=== PATIENT | female | born 1980 | race Caucasian/White ===

== ENCOUNTER → 2016-03-24 | Outpatient (CLI) | payer MEDICAID ==
--- NOTE | 2016-03-24 12:30 | Diagnostic Imaging Report ---
PROCEDURE: MRI lumbar spine. TECHNIQUE: Multiplanar, multisequence MRI of the lumbar spine was performed without contrast. INDICATION: Chronic back pain. FINDINGS: There is a transitional lumbosacral junction. There is mildly prominent disc between S1 and S2 and the left lateral mass of the S1 level is lumbarized with morphology of a transverse process. The alignment of the posterior spinal line is satisfactory. The vertebral body heights are preserved. There is disc desiccation at L4/L5 level with mild disc height loss. There is diffuse low signal in the marrow. There is an 8 mm T1 and T2 hyperintense signal lesion in L2 vertebral body compatible with a hemangioma. The cauda equina and conus medullaris appear grossly unremarkable. T12/L1: There is minimal disc herniation without spinal canal stenosis or foraminal narrowing. L1/L2: No disc herniation. There is mild facet hypertrophy. No spinal canal or foraminal stenosis. L2/L3: No disc herniation. There is mild facet hypertrophy with minimal synovial cyst posterior to the right facet joint. No spinal canal or foraminal stenosis. L3/L4: No disc herniation. There is mild to moderate facet hypertrophy. No central canal, lateral recess or foraminal stenosis. L4/L5: There is no disc herniation. There is mild to moderate facet hypertrophy. No central canal or lateral recess stenosis. The foramina demonstrate mild narrowing bilaterally. L5/S1: There is a mild diffuse disc bulge and mild facet hypertrophy. There is no central canal stenosis. There is mild narrowing of the lateral recess on the left side without significant nerve compression. The right lateral recess is patent. The foramina demonstrate minimal narrowing bilaterally. IMPRESSION: 1. Diffuse replacement of normal expected fatty marrow suggestive of an infiltrative marrow disease, or reactive hematopoiesis. This could also be seen with hematologic malignancy. Correlate clinically. 2. Mild disc degenerative changes and herniation at L5/S1 and multilevel facet arthropathy in the lumbar spine. No high-grade spinal canal stenosis at any level. Dictated by: Dictated on workstation # [id number]
== END ==
LOC: RAD 10:17
PROVIDERS: ATTEND Nurse Practitioner Adult Health
DX: M54.5 Low back pain (principal)
CPT/HCPCS: 72148

== ENCOUNTER 2017-02-13 11:01 | Outpatient (CLI) | payer MEDICAID ==
[~2017-02-13] VITALS: Ht 162.6 cm; Wt 166.0 kg
[2017-02-13 11:09] VITALS: BP 144/71
[2017-02-13] MEDS ORDERED: METO100T12 PO (11:17)
[2017-02-13] MEDS ORDERED: SOTA160T PO (11:17)
[2017-02-13] MEDS ORDERED: VIT1TABL75 PO (11:17)
[2017-02-13] MEDS ORDERED: HYDR-700 PO (11:17)
[2017-02-13] MEDS ORDERED: ACET325T49 PO (11:17)
[2017-02-13] MEDS ORDERED: ENOX40DI13 SQ (11:17)
[2017-02-13] MEDS ORDERED: ESCI20TA45 PO (11:17)
[2017-02-13] MEDS ORDERED: VERA240C2 PO (11:17)
[2017-02-13] MEDS ORDERED: FERR-74 PO (11:17)
== END 2017-02-13 11:40 | disposition home or self-care (01) ==
LOC: PREOP 11:01
PROVIDERS: ATTEND Obstetrics & Gynecology
DX: Z01.818 Encounter for other preprocedural examination (principal); Z11.2 Encounter for screening for other bacterial diseases; O34.211 Maternal care for low transverse scar from previous cesarean delivery; Z88.1 Allergy status to other antibiotic agents
CPT/HCPCS: 87081

== ENCOUNTER → 2017-02-13 | Outpatient (CLI) | payer MEDICAID ==
[~2017-02-13] MED LIST: ACET325T49 PO; ENOX40DI13 SQ; ESCI20TA45 PO; FERR-74 PO; HYDR-700 PO; METO100T12 PO; SOTA160T PO; VERA240C2 PO; VIT1TABL75 PO
[2017-02-13 12:59] LABS: PROTEIN/CREATININE RATIO 0.45
== END ==
LOC: LABNPT 12:06
PROVIDERS: ATTEND Obstetrics & Gynecology
DX: O28.8 Other abnormal findings on antenatal screening of mother (principal)
CPT/HCPCS: 82570; 84156

== ENCOUNTER 2017-02-14 08:50 | Inpatient (IN) | payer MEDICAID ==
[~2017-02-14] VITALS: Ht 162.6 cm; Wt 166.0 kg
[2017-02-14 09:05] VITALS: BP 121/57
--- OUTSIDE RECORDS SUMMARY | 2017-02-14 09:17 | XMS REPORT ---
Author Author RAMSES ROCK Organization [facility] Address [address] [place] [address] Care Team Providers Care Training Representative Name Role Phone RAMSES ROCK Unavailable PROBLEMS Type Condition ICD9-CM Code [id number] Code Onset Dates Condition Status SNOMED Code Problem Edema, unspecified type R60.9 Active 911398416 Problem Hypercholesterolemia E78.0 Active 94997269 Problem Coronary artery disease, angina presence unspecified, unspecified vessel or lesion type, unspecified whether [place] or transplanted heart I25.10 Active 63005253 Problem Reactive depression F32.9 Active 49218536 Problem Hyperlipidemia, unspecified hyperlipidemia type E78.5 Active 24742296 Problem Mild intermittent asthma without complication J45.20 Active 065368281 Problem Gastroesophageal reflux disease, esophagitis presence not specified K21.9 Active 121576655 Problem Cluster headache, not intractable, unspecified chronicity pattern G44.009 Active 788716646 Problem Other constipation K59.09 Active 919721076 Problem Anxiety F41.9 Active 58178087 Problem Hypertension I10 Active 64029408 Problem Anemia D64.9 Active 350993727 Problem Environmental allergies Z91.09 Active 292448913 Problem Atrial fibrillation I48.91 Active 79607669 Problem Chronic back pain M54.9 Active 624515124 Problem Obesity E66.9 Active 568330168 Problem GERD (gastroesophageal reflux disease) K21.9 Active 788236565 ALLERGIES No Information SOCIAL HISTORY Never Assessed PLAN OF CARE VITAL SIGNS MEDICATIONS Unknown Medications RESULTS No Results PROCEDURES No Known procedures IMMUNIZATIONS No Known Immunizations MEDICAL (GENERAL) HISTORY Type Description Date Medical History Irregular heart beat Medical History Hypertension Medical History GERD Medical History diverticulitis Medical History Gynecological disorder POS and PCOS Medical History Epilepsy and recurrent seizures r/t vertigo Surgical History Genito-urinary tract surgery/endometriosis Surgical History X2 Hospitalization History surgeries Hospitalization History A Fib multiple times
--- OUTSIDE RECORDS SUMMARY | 2017-02-14 09:17 | XMS REPORT ---
Author RAMSES Reis [facility] eClinicalWorks Address Unknown Phone Unavailable Care Team Providers Care Dog Groomer Name Role Phone RAMSES ROCK CP Unavailable Allergies No Known Allergies Problems Problem Type Condition Code Onset Dates Condition Status Problem Chronic back pain M54.9 Active Problem Anemia D64.9 Active Problem Obesity E66.9 Active Problem Hypertension I10 Active Problem Anxiety F41.9 Active Problem Atrial fibrillation I48.91 Active Problem GERD (gastroesophageal reflux disease) K21.9 Active Problem Environmental allergies Z91.09 Active Problem CAD (coronary artery disease) I25.10 Active Medications Medication Code System Code Instructions Start Date End Date Status Dosage Hydrocodone-Acetaminophen [facility] [address]-17 10-250 mg orally 4 times per day April 27, 2012 1 tablet as needed Results No Known Results Summary Purpose eClinicalWorks Submission
--- OUTSIDE RECORDS SUMMARY | 2017-02-14 09:17 | XMS REPORT ---
Author Author RAMSES ROCK [facility] eClinicalWorks Address Unknown Phone Unavailable Care Team Providers Care Web Applications Architect Name Role Phone RAMSES ROCK CP Unavailable Allergies No Known Allergies Problems Problem Type Condition Code Onset Dates Condition Status Problem GERD (gastroesophageal reflux disease) K21.9 Active Problem Environmental allergies Z91.09 Active Problem Atrial fibrillation I48.91 Active Problem Anemia D64.9 Active Problem Chronic back pain M54.9 Active Problem Hypercholesterolemia E78.0 Active Problem Coronary artery disease, angina presence unspecified, unspecified vessel or lesion type, unspecified whether [place] or transplanted heart I25.10 Active Problem Gastroesophageal reflux disease, esophagitis presence not specified K21.9 Active Problem Obesity E66.9 Active Problem Hypertension I10 Active Problem Edema, unspecified type R60.9 Active Problem Anxiety F41.9 Active Medications Medication Code System Code Instructions Start Date End Date Status Dosage Alprazolam [facility] [address]-58 1 MG Orally Three times a day 1 tablet as needed Results No Known Results Summary Purpose eClinicalWorks Submission
--- OUTSIDE RECORDS SUMMARY | 2017-02-14 09:17 | XMS REPORT ---
Author Author RAMSES ROCK [facility] eClinicalWorks Address Unknown Phone Unavailable Care Team Providers Care Combiner Operator Name Role Phone RAMSES ROCK CP Unavailable Allergies No Known Allergies Problems Problem Type Condition Code Onset Dates Condition Status Problem Atrial fibrillation I48.91 Active Problem Hypertension I10 Active Problem Environmental allergies Z91.09 Active Problem Gastroesophageal reflux disease, esophagitis presence not specified K21.9 Active Problem Hypercholesterolemia E78.0 Active Problem Mild intermittent asthma without complication J45.20 Active Problem Anxiety F41.9 Active Problem Obesity E66.9 Active Problem Coronary artery disease, angina presence unspecified, unspecified vessel or lesion type, unspecified whether [place] or transplanted heart I25.10 Active Problem Edema, unspecified type R60.9 Active Assessment Anxiety F41.9 Active Problem Anemia D64.9 Active Problem Chronic back pain M54.9 Active Problem GERD (gastroesophageal reflux disease) K21.9 Active Medications Medication Code System Code Instructions Start Date End Date Status Dosage Hydrocodone-Acetaminophen [facility] [address]-90 10-325 MG Orally every 6 hrs Jan 07, 2016 Feb 04, 2016 1 tablet as needed Results No Known Results Summary Purpose eClinicalWorks Submission
--- OUTSIDE RECORDS SUMMARY | 2017-02-14 09:18 | XMS REPORT ---
Author Author RAMSES ROCK Organization [facility] Address [address] [place] [address] Care Team Providers Care Lithographic Press Operator Name Role Phone JAMES ROCKNETTE Unavailable PROBLEMS Type Condition ICD9-CM Code [id number] Code Onset Dates Condition Status SNOMED Code Problem Edema, unspecified type R60.9 Active 398943778 Problem Hypercholesterolemia E78.0 Active 33892329 Problem Coronary artery disease, angina presence unspecified, unspecified vessel or lesion type, unspecified whether [place] or transplanted heart I25.10 Active 63421307 Problem Reactive depression F32.9 Active 94207790 Problem Hyperlipidemia, unspecified hyperlipidemia type E78.5 Active 89383902 Problem Mild intermittent asthma without complication J45.20 Active 316649840 Problem Gastroesophageal reflux disease, esophagitis presence not specified K21.9 Active 123121705 Problem Cluster headache, not intractable, unspecified chronicity pattern G44.009 Active 072583486 Problem Other constipation K59.09 Active 268639185 Problem Anxiety F41.9 Active 88215662 Problem Hypertension I10 Active 10810068 Problem Anemia D64.9 Active 692456261 Problem Environmental allergies Z91.09 Active 750632554 Problem Atrial fibrillation I48.91 Active 56941013 Problem Chronic back pain M54.9 Active 695474432 Problem Obesity E66.9 Active 184088119 Problem GERD (gastroesophageal reflux disease) K21.9 Active 290958318 ALLERGIES Unknown Allergies SOCIAL HISTORY No smoking Hx information available PLAN OF CARE VITAL SIGNS MEDICATIONS Unknown Medications RESULTS No Results PROCEDURES No Known procedures IMMUNIZATIONS No Known Immunizations
--- OUTSIDE RECORDS SUMMARY | 2017-02-14 09:18 | XMS REPORT ---
Author Author RAMSES ROCK [facility] eClinicalWorks Address Unknown Phone Unavailable Care Team Providers Care Chicken Catcher Name Role Phone RAMSES ROCK CP Unavailable Allergies, Adverse Reactions, Alerts Substance Reaction Event Type Reglan Info Not Available Drug Allergy Prozac Info Not Available Drug Allergy Morphine Sulfate Info Not Available Drug Allergy Cipro chest pain Drug Allergy Amoxicillin Info Not Available Drug Allergy wheat Info Not Available Non Drug Allergy shellfish Info Not Available Non Drug Allergy milk Info Not Available Non Drug Allergy Ultram Info Not Available Drug Allergy corn Info Not Available Non Drug Allergy eggs Info Not Available Non Drug Allergy Problems Problem Type Condition Code Onset Dates Condition Status Assessment Hypertension I10 Active Problem Chronic back pain M54.9 Active Problem Anemia D64.9 Active Problem Obesity E66.9 Active Problem Hypertension I10 Active Problem Anxiety F41.9 Active Problem Atrial fibrillation I48.91 Active Problem GERD (gastroesophageal reflux disease) K21.9 Active Problem Environmental allergies Z91.09 Active Problem CAD (coronary artery disease) I25.10 Active Assessment Hypercholesteremia E78.0 Active Assessment Obesity E66.9 Active Assessment Environmental allergies Z91.09 Active Assessment Chronic back pain M54.9 Active Assessment GERD (gastroesophageal reflux disease) K21.9 Active Assessment Anxiety F41.9 Active Assessment Atrial fibrillation I48.91 Active Assessment Anemia D64.9 Active Assessment CAD (coronary artery disease) I25.10 Active Medications Medication Code System Code Instructions Start Date End Date Status Dosage Omeprazole [facility] [address]-98 40 MG April 26, 2013 2 Capsule by Oral route 1 time per day Flonase [facility] [address]-29 50 MCG/ACT Nasally 2 times a day Jan 18, 2015 1 spray in each nostril Xanax [facility] [address]-06 1 MG Orally 3 times a day Dec 25, 2014 1 tablet verapamil ND 0 240 mg April 26, 2013 take 1 tablet by Oral route 1 time per day at bedtime Coumadin [facility] [address]-64 6 MG Once a day take 1 tablet (7.5 mg ) by oral route once daily Metoprolol Tartrate [facility] [address]-65 100 MG Orally Twice a day April 26, 2013 take 1 tablet by oral route 2 times per day Singulair [facility] [address]-79 10 MG Orally Once a day 1 TABLET BY ORAL ROUTE 1 TIME PER DAY Combivent Respimat [facility] [address]-67 20-100 mcg/actuation Apr 07, 2014 inhale 1 puff by inhalation route 4 times per day ; may take additional puffs as needed not to exceed 6 puffs in 24hrs Loratadine [facility] 81220530060 10 TAKE 1 TABLET BY MOUTH EVERY DAY Zocor [facility] [address]-65 20 MG Once a day April 26, 2013 take 1 tablet (20 mg) by oral route once daily in the evening Sotalol HCl [facility] [address]-65 160 MG Orally Twice a day 1 tablet Trilipix [facility] [address]-18 135 MG Orally Once a day Nov 30, 2014 1 capsule Furosemide [facility] 90169366286 40 TAKE 1 TABLET BY MOUTH DAILY Hydrocodone-Acetaminophen [facility] [address]-48 10-250 mg 3 times a day April 27, 2012 1 tablet as needed Procedures Procedure Coding System Code Date Office Visit, Est Pt., Level 4 CPT-4 92772 Jan 27, 2015 PROTHROMBIN TIME CPT-4 57615 Jan 27, 2015 Vital Signs Date/Time: Jan 27, 2015 Temperature 97.6 F Weight 373 lbs Height 70 in BMI 53.51 Index Blood Pressure Diastolic 86 mmHg Blood Pressure Systolic 112 mmHg Cardiac Monitoring Heart Rate 72 bpm Results Name Result Date Reference Range Unit Abnormality Flag INR (IN HOUSE) ----Exp date 20150127 ----Lot # [id number] ----INR 3.2 20150127 1.10 - 3.30 ----PREVIOUS INR 4.0 20150127 ----CURRENT COUMADIN DOSE 6mg everyday 20150127 ----NEW COUMADIN DOSE 6mg everyday 20150127 Summary Purpose eClinicalWorks Submission
--- OUTSIDE RECORDS SUMMARY | 2017-02-14 09:18 | XMS REPORT ---
Author Author RAMSES ROCK Organization [facility] Address [address] [place] [address] Care Team Providers Care Pattern And Chain Maker Name Role Phone FRANCIS ROCKE Unavailable PROBLEMS Type Condition ICD9-CM Code TSR83-BK Code Onset Dates Condition Status SNOMED Code Problem Edema, unspecified type R60.9 Active 343017918 Problem Hypercholesterolemia E78.0 Active 16112402 Problem Coronary artery disease, angina presence unspecified, unspecified vessel or lesion type, unspecified whether [place] or transplanted heart I25.10 Active 15646011 Problem Reactive depression F32.9 Active 27476185 Problem Hyperlipidemia, unspecified hyperlipidemia type E78.5 Active 03185953 Problem Mild intermittent asthma without complication J45.20 Active 779200861 Problem Gastroesophageal reflux disease, esophagitis presence not specified K21.9 Active 562252214 Problem Cluster headache, not intractable, unspecified chronicity pattern G44.009 Active 243758254 Problem Other constipation K59.09 Active 326835002 Problem Anxiety F41.9 Active 41516700 Problem Hypertension I10 Active 73137164 Problem Anemia D64.9 Active 398978433 Problem Environmental allergies Z91.09 Active 155799643 Problem Atrial fibrillation I48.91 Active 44681903 Problem Chronic back pain M54.9 Active 227086658 Problem Obesity E66.9 Active 996629060 Problem GERD (gastroesophageal reflux disease) K21.9 Active 417422110 ALLERGIES No Information SOCIAL HISTORY Never Assessed PLAN OF CARE VITAL SIGNS MEDICATIONS Medication Instructions Dosage Frequency Start Date End Date Duration Status Hydrocodone-Acetaminophen 10-325 MG Orally every 6 hrs 1 tablet as needed 6h Mar, Active Xanax 1 MG Orally 3 times a day Rx to be filled on 02/25/16 1 tablet Dec Active RESULTS No Results PROCEDURES No Known procedures [...]
--- OUTSIDE RECORDS SUMMARY | 2017-02-14 09:18 | XMS REPORT ---
Author Author RAMSES ROCK Organization [facility] Address [address] [place] [address] Care Team Providers Care Claims Account Specialist Name Role Phone RAMSES ROCK Unavailable PROBLEMS Type Condition ICD9-CM Code [id number] Code Onset Dates Condition Status SNOMED Code Problem Edema, unspecified type R60.9 Active 598280452 Problem Hypercholesterolemia E78.0 Active 09836977 Problem Coronary artery disease, angina presence unspecified, unspecified vessel or lesion type, unspecified whether [place] or transplanted heart I25.10 Active 41731670 Problem Reactive depression F32.9 Active 08640236 Problem Hyperlipidemia, unspecified hyperlipidemia type E78.5 Active 18143096 Problem Mild intermittent asthma without complication J45.20 Active 190049816 Problem Gastroesophageal reflux disease, esophagitis presence not specified K21.9 Active 357152847 Problem Cluster headache, not intractable, unspecified chronicity pattern G44.009 Active 575845533 Problem Other constipation K59.09 Active 715044435 Problem Anxiety F41.9 Active 91201585 Problem Hypertension I10 Active 53779597 Problem Anemia D64.9 Active 778758212 Problem Environmental allergies Z91.09 Active 748380473 Problem Atrial fibrillation I48.91 Active 52573473 Problem Chronic back pain M54.9 Active 112701900 Problem Obesity E66.9 Active 765466043 Problem GERD (gastroesophageal reflux disease) K21.9 Active 056829393 ALLERGIES No Information SOCIAL HISTORY Never Assessed [...]
--- OUTSIDE RECORDS SUMMARY | 2017-02-14 09:18 | XMS REPORT ---
Author Author PRANAV RAMSES Organization [facility] Address [address] [place] [address] Care Team Providers Care Outpatient Physical Therapist Name Role Phone RAMSES ROCK Unavailable PROBLEMS Type Condition ICD9-CM Code BCK08-OC Code Onset Dates Condition Status SNOMED Code Problem Edema, unspecified type R60.9 Active 895099590 Problem Hypercholesterolemia E78.0 Active 80347244 Problem Coronary artery disease, angina presence unspecified, unspecified vessel or lesion type, unspecified whether [place] or transplanted heart I25.10 Active 35597788 Problem Reactive depression F32.9 Active 66050440 Problem Hyperlipidemia, unspecified hyperlipidemia type E78.5 Active 47087359 Problem Mild intermittent asthma without complication J45.20 Active 946578543 Problem Gastroesophageal reflux disease, esophagitis presence not specified K21.9 Active 327838172 Problem Other constipation K59.09 Active 275624681 Problem Cluster headache, not intractable, unspecified chronicity pattern G44.009 Active 133230740 Problem Anemia D64.9 Active 518686100 Problem Chronic back pain M54.9 Active 679508874 Problem Environmental allergies Z91.09 Active 646465615 Problem Hypertension I10 Active 39969452 Problem GERD (gastroesophageal reflux disease) K21.9 Active 754232132 Problem Obesity E66.9 Active 494850090 Problem Atrial fibrillation I48.91 Active 24448029 Problem Anxiety F41.9 Active 90320914 ALLERGIES Substance Reaction Event Type Date Status Prozac Unknown Drug Allergy Jan, Active Morphine Sulfate Unknown Drug Allergy Jan, Active Keflex chest pain and bradychardia Drug Allergy Jan, Active Cipro chest pain Drug Allergy Jan, Active Amoxicillin Unknown Drug Allergy Jan, Active wheat Unknown Non Drug Allergy Jan, Active shellfish Unknown Non Drug Allergy Jan, Active Ultram Unknown Drug Allergy Jan, Active milk Unknown Non Drug Allergy Jan, Active Reglan Unknown Drug Allergy Jan, Active corn Unknown Non Drug Allergy Jan, Active eggs Unknown Non Drug Allergy Jan, Active SOCIAL HISTORY No smoking Hx information available PLAN OF CARE Activity Details Follow Up 4 Weeks Reason:back pain worsening VITAL SIGNS Height 70 in 2016-02-08 Weight 340 lbs 2016-02-08 Temperature 98.0 degrees Fahrenheit 2016-02-08 Heart Rate 72 bpm 2016-02-08 Respiratory Rate 20 2016-02-08 BMI 48.78 kg/m2 2016-02-08 Blood pressure systolic 110 mmHg 2016-02-08 Blood pressure diastolic 72 mmHg 2016-02-08 MEDICATIONS Medication Instructions Dosage Frequency Start Date End Date Duration Status Verapamil HCl CR 240 MG Orally Once a day 1 tablet 24h Active Furosemide 40 TAKE 1 TABLET BY MOUTH DAILY Active Loratadine 10 MG Orally Once a day 1 tablet 24h Active Combivent Respimat 20-100 MCG/ACT INHALE 1 PUFF FOUR TIMES DAILY DIRECTED Active Metoprolol Tartrate 100 MG Orally Twice a day 1 tablet 12h Active Singulair 10 MG Orally Once a day 1 TABLET BY ORAL ROUTE 1 TIME PER DAY 24h Active Topamax 50 MG Orally Twice a day 1 tablet 12h Active Xanax 1 MG Orally Twice a day 1 tablet 12h Dec, Active Lexapro 10 mg Orally Once a day 1 tablet 24h Nov, Active Flonase 50 MCG/ACT 1 SPRAY IN EACH NOSTRIL 2 TIMES A DAY NASALLY 30 DAY(S) Active Prilosec 40 mg Orally Twice a day 1 capsule 12h Active MiraLax 17 gm/dose Orally Once a day 17 grams mixed in 8 oz of water or juice 24h Active Tylenol 325 MG Orally every 6 hrs 2 tablets as needed 6h June, Active Xarelto 20 MG Orally Once a day 1 tablet with food 24h Active Zofran 4 MG Orally 3 times a day 1 tablets 8h Aug, 30 day(s) Active Zocor 20 MG take 1 tablet (20 mg) by oral route once daily in the evening Active Hydrocodone-Acetaminophen 10-325 MG Orally every 6 hrs 1 tablet as needed 6h Dec, Active Flonase Allergy Relief 50 MCG/ACT Nasally Once a day 1 spray in each nostril 24h June, Active Lopid 600 MG Orally Twice a day 1 tablet 12h Aug, 30 day(s) Active Sotalol HCl 160 MG Orally every 12 hrs 1 tablet 12h Active RESULTS Name Result Date Reference Range Xray : Spine, Lumbar 2-3 views (IN HOUSE) 2016-02-08 PROCEDURES Procedure Date Ordered Related Diagnosis Body Site X-RAY EXAM OF LOWER SPINE Feb 08, 2016 Office Visit, Est Pt., Level 4 Feb 08, 2016 IMMUNIZATIONS No Known Immunizations
--- OUTSIDE RECORDS SUMMARY | 2017-02-14 09:18 | XMS REPORT ---
Author Author RAMSES ROCK [facility] eClinicalWorks Address Unknown Phone Unavailable Care Team Providers Care Auto Claim Representative Name Role Phone RAMSES ROCK CP Unavailable Allergies, Adverse Reactions, Alerts Substance Reaction Event Type Ultram Info Not Available Drug Allergy Reglan Info Not Available Drug Allergy Prozac Info Not Available Drug Allergy Morphine Sulfate Info Not Available Drug Allergy Amoxicillin Info Not Available Drug Allergy wheat Info Not Available Non Drug Allergy shellfish Info Not Available Non Drug Allergy milk Info Not Available Non Drug Allergy corn Info Not Available Non Drug Allergy eggs Info Not Available Non Drug Allergy Problems Problem Type Condition Code Onset Dates Condition Status Assessment Anxiety F41.9 Active Problem Chronic back pain M54.9 Active Problem Anemia D64.9 Active Problem Obesity E66.9 Active Problem Hypertension I10 Active Problem Anxiety F41.9 Active Problem Atrial fibrillation I48.91 Active Problem GERD (gastroesophageal reflux disease) K21.9 Active Problem Environmental allergies Z91.09 Active Problem CAD (coronary artery disease) I25.10 Active Assessment Anemia D64.9 Active Assessment Chronic back pain M54.9 Active Assessment Hypercholesterolemia E78.0 Active Assessment CAD (coronary artery disease) I25.10 Active Assessment Environmental allergies Z91.09 Active Assessment GERD (gastroesophageal reflux disease) K21.9 Active Assessment Hypertension I10 Active Assessment Atrial fibrillation I48.91 Active Assessment Obesity E66.9 Active Medications Medication Code System Code Instructions Start Date End Date Status Dosage Loratadine [facility] 07613180142 10 TAKE 1 TABLET BY MOUTH EVERY DAY Sotalol HCl [facility] [address]-51 160 MG Orally Twice a day not defined Metoprolol Tartrate [facility] [address]-71 100 MG Orally Twice a day April 26, 2013 take 1 tablet by oral route 2 times per day Singulair [facility] [address]-16 10 MG Orally Once a day 1 TABLET BY ORAL ROUTE 1 TIME PER DAY Hydrocodone-Acetaminophen [facility] [address]-14 10-325 MG Orally every 6 hrs Nov 26, 2014 Dec 26, 2014 1 tablet as needed Xanax [facility] [address]-97 1 MG Orally 3 times a day Dec 25, 2014 1 tablet Trilipix [facility] [address]-33 135 MG Orally Once a day Nov 30, 2014 1 capsule Zocor [facility] [address]-30 20 MG Once a day April 26, 2013 take 1 tablet (20 mg) by oral route once daily in the evening Omeprazole [facility] [address]-34 40 mg April 26, 2013 2 Capsule by Oral route 1 time per day Flonase [facility] [address]-63 50 mcg/actuation April 26, 2013 1 sprays by Nasal route 2 times per day in each nostril verapamil ND 0 240 mg April 26, 2013 take 1 tablet by Oral route 1 time per day at bedtime Coumadin [facility] [address]-49 6 MG Orally Once a day April 26, 2013 take 1 tablet (7.5 mg) by oral route once daily Combivent Respimat [facility] [address]-37 20-100 mcg/actuation Apr 07, 2014 inhale 1 puff by inhalation route 4 times per day ; may take additional puffs as needed not to exceed 6 puffs in 24hrs Furosemide [facility] 18717944095 40 TAKE 1 TABLET BY MOUTH DAILY Procedures Procedure Coding System Code Date Office Visit, Est Pt., Level 4 CPT-4 23319 Dec 25, 2014 PROTHROMBIN TIME CPT-4 46070 Dec 25, 2014 Vital Signs Date/Time: Dec 25, 2014 Temperature 98.1 F Weight 379.1 lbs Height 70 in BMI 54.39 Index Blood Pressure Diastolic 82 mmHg Blood Pressure Systolic 130 mmHg Cardiac Monitoring Heart Rate 94 bpm Results Name Result Date Reference Range Unit Abnormality Flag INR (IN HOUSE) ----INR 4.0 [id number] 1.10 - 3.30 ----PREVIOUS INR 2.2 [id number] ----CURRENT COUMADIN DOSE 7.5mg [id number] ----NEW COUMADIN DOSE 6.0 [id number] Summary Purpose eClinicalWorks Submission
--- OUTSIDE RECORDS SUMMARY | 2017-02-14 09:18 | XMS REPORT ---
Author Author RAMSES ROCK Organization [facility] Address [address] [place] [address] Care Team Providers Care User Experience Developer Name Role Phone JAMES ROCKNETTE Unavailable PROBLEMS Type Condition ICD9-CM Code [id number] Code Onset Dates Condition Status SNOMED Code Problem Edema, unspecified type R60.9 Active 222190636 Problem Hypercholesterolemia E78.0 Active 78563320 Problem Coronary artery disease, angina presence unspecified, unspecified vessel or lesion type, unspecified whether [place] or transplanted heart I25.10 Active 77576321 Problem Reactive depression F32.9 Active 25082473 Problem Hyperlipidemia, unspecified hyperlipidemia type E78.5 Active 76554913 Problem Mild intermittent asthma without complication J45.20 Active 895498455 Problem Gastroesophageal reflux disease, esophagitis presence not specified K21.9 Active 339596257 Problem Cluster headache, not intractable, unspecified chronicity pattern G44.009 Active 734111862 Problem Other constipation K59.09 Active 996632937 Problem Anxiety F41.9 Active 05799744 Problem Hypertension I10 Active 06864182 Problem Anemia D64.9 Active 912961564 Problem Environmental allergies Z91.09 Active 499821802 Problem Atrial fibrillation I48.91 Active 37026475 Problem Chronic back pain M54.9 Active 817834805 Problem Obesity E66.9 Active 341284408 Problem GERD (gastroesophageal reflux disease) K21.9 Active 524624057 ALLERGIES No Information SOCIAL HISTORY Never Assessed PLAN OF CARE VITAL SIGNS MEDICATIONS Medication Instructions Dosage Frequency Start Date End Date Duration Status Lovenox 40 MG/0.4ML Subcutaneous Once a day 0.4 ml 24h June, 30 days Active RESULTS No Results PROCEDURES No Known [...]
--- OUTSIDE RECORDS SUMMARY | 2017-02-14 09:18 | XMS REPORT ---
Author Author RAMSES ROCK [facility] eClinicalWorks Address Unknown Phone Unavailable Care Team Providers Care Joggle Press Operator Name Role Phone RAMSES ROCK CP Unavailable Allergies No Known Allergies Problems Problem Type Condition Code Onset Dates Condition Status Assessment Chronic back pain M54.9 Active Problem Chronic back pain M54.9 Active Problem Anemia D64.9 Active Problem Obesity E66.9 Active Problem Hypertension I10 Active Problem Anxiety F41.9 Active Problem Atrial fibrillation I48.91 Active Problem GERD (gastroesophageal reflux disease) K21.9 Active Problem Environmental allergies Z91.09 Active Problem CAD (coronary artery disease) I25.10 Active Medications Medication Code System Code Instructions Start Date End Date Status Dosage Alprazolam [facility] [address]-64 1 MG Orally Three times a day 1 tablet as needed Hydrocodone-Acetaminophen [facility] [address]-93 10-325 MG Orally every 6 hrs 1 tablet as needed Results No Known Results Summary Purpose eClinicalWorks Submission
--- OUTSIDE RECORDS SUMMARY | 2017-02-14 09:18 | XMS REPORT ---
Author Author RAMSES ROCK Organization [facility] Address [address] [place] [address] Care Team Providers Care Egyptologist Name Role Phone FRANCIS ROCKE Unavailable PROBLEMS Type Condition ICD9-CM Code [id number] Code Onset Dates Condition Status SNOMED Code Problem Edema, unspecified type R60.9 Active 374417938 Problem Hypercholesterolemia E78.0 Active 49240925 Problem Coronary artery disease, angina presence unspecified, unspecified vessel or lesion type, unspecified whether [place] or transplanted heart I25.10 Active 42732816 Problem Reactive depression F32.9 Active 33128727 Problem Hyperlipidemia, unspecified hyperlipidemia type E78.5 Active 25387797 Problem Mild intermittent asthma without complication J45.20 Active 431038132 Problem Gastroesophageal reflux disease, esophagitis presence not specified K21.9 Active 066846507 Problem Cluster headache, not intractable, unspecified chronicity pattern G44.009 Active 861902594 Problem Other constipation K59.09 Active 043512711 Problem Anxiety F41.9 Active 90345585 Problem Hypertension I10 Active 21951583 Problem Anemia D64.9 Active 734653659 Problem Environmental allergies Z91.09 Active 720699817 Problem Atrial fibrillation I48.91 Active 01919199 Problem Chronic back pain M54.9 Active 631298494 Problem Obesity E66.9 Active 571219249 Problem GERD (gastroesophageal reflux disease) K21.9 Active 662559156 ALLERGIES No Information SOCIAL HISTORY Never Assessed PLAN OF CARE VITAL SIGNS MEDICATIONS Medication Instructions Dosage Frequency Start Date End Date Duration Status Hydrocodone-Acetaminophen 10-325 MG Orally every 6 hrs 1 tablet as needed 6h Apr, 28 days Active RESULTS No Results PROCEDURES No [...]
--- OUTSIDE RECORDS SUMMARY | 2017-02-14 09:19 | XMS REPORT ---
Author Author RAMSES ROCK [facility] eClinicalWorks Address Unknown Phone Unavailable Care Team Providers Care Bioinformatics Computer Scientist Name Role Phone RAMSES ROCK Unavailable Allergies No Known Allergies Problems Problem Type Condition Code Onset Dates Condition Status Problem GERD (gastroesophageal reflux disease) K21.9 Active Problem Environmental allergies Z91.09 Active Problem Atrial fibrillation I48.91 Active Problem Anemia D64.9 Active Problem Chronic back pain M54.9 Active Problem Hypercholesterolemia E78.0 Active Problem Coronary artery disease, angina presence unspecified, unspecified vessel or lesion type, unspecified whether [place] or transplanted heart I25.10 Active Problem Gastroesophageal reflux disease, esophagitis presence not specified K21.9 Active Problem Obesity E66.9 Active Problem Hypertension I10 Active Problem Edema, unspecified type R60.9 Active Problem Anxiety F41.9 Active Medications Medication Code System Code Instructions Start Date End Date Status Dosage Topamax [facility] 23768693437 50 MG Orally Twice a day 1 tablet Results No Known Results Summary Purpose eClinicalWorks Submission
--- OUTSIDE RECORDS SUMMARY | 2017-02-14 09:19 | XMS REPORT ---
Author Author RAMSES ROCK Organization [facility] Address [address] [place] [address] Care Team Providers Care Facility Worker Name Role Phone FRANCIS ROCKE Unavailable PROBLEMS Type Condition ICD9-CM Code [id number] Code Onset Dates Condition Status SNOMED Code Problem Edema, unspecified type R60.9 Active 544096048 Problem Hypercholesterolemia E78.0 Active 04067887 Problem Coronary artery disease, angina presence unspecified, unspecified vessel or lesion type, unspecified whether [place] or transplanted heart I25.10 Active 74942925 Problem Reactive depression F32.9 Active 53185391 Problem Hyperlipidemia, unspecified hyperlipidemia type E78.5 Active 92542840 Problem Mild intermittent asthma without complication J45.20 Active 506071109 Problem Gastroesophageal reflux disease, esophagitis presence not specified K21.9 Active 907808390 Problem Cluster headache, not intractable, unspecified chronicity pattern G44.009 Active 214845850 Problem Other constipation K59.09 Active 393165868 Problem Anxiety F41.9 Active 90726162 Problem Hypertension I10 Active 88718645 Problem Anemia D64.9 Active 169220208 Problem Environmental allergies Z91.09 Active 257676191 Problem Atrial fibrillation I48.91 Active 40256646 Problem Chronic back pain M54.9 Active 918260210 Problem Obesity E66.9 Active 036950376 Problem GERD (gastroesophageal reflux disease) K21.9 Active 577765044 ALLERGIES Unknown Allergies SOCIAL HISTORY No smoking Hx information available PLAN OF CARE VITAL SIGNS MEDICATIONS Unknown Medications RESULTS Name Result Date Reference Range MRI : Lumbar w/o contrast 2016-03-24 PROCEDURES No Known procedures IMMUNIZATIONS No Known Immunizations
--- OUTSIDE RECORDS SUMMARY | 2017-02-14 09:19 | XMS REPORT ---
Author Author RAMSES ROCK [facility] eClinicalWorks Address Unknown Phone Unavailable Care Team Providers Care Glove Former Name Role Phone RAMSES ROCK CP Unavailable [...] unspecified vessel or lesion type, unspecified whether [place] or transplanted heart I25.10 Active Problem Edema, unspecified type R60.9 Active Problem Anemia D64.9 Active Problem Chronic back pain M54.9 Active Problem GERD (gastroesophageal reflux disease) K21.9 Active Medications No Known Medications Results No Known Results Summary Purpose eClinicalWorks Submission
--- OUTSIDE RECORDS SUMMARY | 2017-02-14 09:19 | XMS REPORT ---
Author Author PRANAV RAMSES Organization [facility] Address [address] [place] [address] Care Team Providers Care Billing And Quality Technician Name Role Phone RAMSES ROCK Unavailable PROBLEMS Type Condition ICD9-CM Code ITY10-PS Code Onset Dates Condition Status SNOMED Code Problem Edema, unspecified type R60.9 Active 649001598 Problem Hypercholesterolemia E78.0 Active 77666144 Problem Coronary artery disease, angina presence unspecified, unspecified vessel or lesion type, unspecified whether [place] or transplanted heart I25.10 Active 36340322 Problem Reactive depression F32.9 Active 32656274 Problem Hyperlipidemia, unspecified hyperlipidemia type E78.5 Active 91012685 Problem Mild intermittent asthma without complication J45.20 Active 428650284 Problem Gastroesophageal reflux disease, esophagitis presence not specified K21.9 Active 018876329 Problem Other constipation K59.09 Active 885720202 Problem Cluster headache, not intractable, unspecified chronicity pattern G44.009 Active 882167355 Problem Anemia D64.9 Active 378337682 Problem Chronic back pain M54.9 Active 024675564 Problem Environmental allergies Z91.09 Active 926171484 Problem Hypertension I10 Active 64910370 Problem GERD (gastroesophageal reflux disease) K21.9 Active 288051262 Problem Obesity E66.9 Active 341800131 Problem Atrial fibrillation I48.91 Active 23280299 Problem Anxiety F41.9 Active 92458957 ALLERGIES Substance Reaction Event Type Date Status Prozac Unknown Drug Allergy Oct, Active Morphine Sulfate Unknown Drug Allergy Oct, Active Keflex chest pain and bradychardia Drug Allergy Oct, Active Cipro chest pain Drug Allergy Oct, Active Amoxicillin Unknown Drug Allergy Oct, Active wheat Unknown Non Drug Allergy Oct, Active shellfish Unknown Non Drug Allergy Oct, Active Ultram Unknown Drug Allergy Oct, Active milk Unknown Non Drug Allergy Oct, Active Reglan Unknown Drug Allergy Oct, Active corn Unknown Non Drug Allergy Oct, Active eggs Unknown Non Drug Allergy Oct, Active SOCIAL HISTORY No smoking Hx information available PLAN OF CARE VITAL SIGNS MEDICATIONS Medication Instructions Dosage Frequency Start Date End Date Duration Status Prilosec 40 MG Orally Twice a day 1 capsule 12h Active Coly-Mycin S 10 ml in the affected ear four times a day 5 drops 6h Active Zofran 4 MG Orally 3 times a day 1 tablets 8h Aug, 30 day(s) Active Singulair 10 MG Orally Once a day 1 TABLET BY ORAL ROUTE 1 TIME PER DAY 24h 30 Active Bactrim DS 800-160 MG Orally Twice a day 1 tablet 12h Oct, Nov, 10 day(s) Active Verapamil HCl CR 240 MG Orally Once a day 1 tablet 24h Active Combivent Respimat 20-100 MCG/ACT INHALE 1 PUFF FOUR TIMES DAILY DIRECTED Active Tylenol 325 MG Orally every 6 hrs 2 tablets as needed 6h June, Active Furosemide 40 TAKE 1 TABLET BY MOUTH DAILY 30 Active Zocor 20 MG take 1 tablet (20 mg) by oral route once daily in the evening 30 Active Loratadine 10 MG Orally Once a day 1 tablet 24h Active Omeprazole 40 TAKE 1 CAPSULE BY MOUTH EVERY DAY 30 Active Topamax 50 Orally Twice a day 1 tablet 12h 30 Active Metoprolol Tartrate 100 MG Orally Twice a day 1 tablet 12h Active Hydrocodone-Acetaminophen 10-325 MG Orally every 6 hrs 1 tablet as needed 6h 28 Active Flonase 50 MCG/ACT 1 SPRAY IN EACH NOSTRIL 2 TIMES A DAY NASALLY 30 DAY(S) Active Xarelto 20 MG Orally Once a day 1 tablet with food 24h Active Topamax 50 MG Orally Twice a day 1 tablet 12h 30 Active Flonase Allergy Relief 50 MCG/ACT Nasally Once a day 1 spray in each nostril 24h June, 07 days Active Sotalol HCl 160 MG Orally every 12 hrs 1 tablet 12h Active Alprazolam 1 MG Orally Three times a day 1 tablet as needed 8h Active RESULTS Name Result Date Reference Range CULTURE, URINE 2015-11-12 Urine Culture, Routine Final report Result 1 Escherichia coli Antimicrobial Susceptibility UA LONG DIP (IN HOUSE) 2015-11-12 Lot # [id number] Exp date Clarity Turbid Color Red Odor Yes GLU Negative DIGNA Negative KET Negative SG 1.020 BLO 3+ pH 7.0 Protein Negative URO 0.2 NIT Negative JUNE Trace Lot # [id number] Exp date PROCEDURES Procedure Date Ordered Related Diagnosis Body Site URINALYSIS, AUTO, W/O SCOPE Nov 12, 2015 LAB NOT BILLED BY [facility] Nov 12, 2015 IMMUNIZATIONS No Known Immunizations
--- OUTSIDE RECORDS SUMMARY | 2017-02-14 09:19 | XMS REPORT ---
Author Author RAMSES ROCK [facility] eClinicalWorks Address Unknown Phone Unavailable Care Team Providers Care Rocket Engine Tester Name Role Phone RAMSES ROCK Unavailable Allergies [...] vessel or lesion type, unspecified whether [place] or transplanted heart I25.10 Active Problem Edema, unspecified type R60.9 Active Problem Anemia D64.9 Active Problem Chronic back pain M54.9 Active Problem GERD (gastroesophageal reflux disease) K21.9 Active Medications Medication Code System Code Instructions Start Date End Date Status Dosage Lexapro [facility] [address]-19 10 mg Orally Once a day Dec 02, 2015 1 tablet Results No Known Results Summary Purpose eClinicalWorks Submission
--- OUTSIDE RECORDS SUMMARY | 2017-02-14 09:19 | XMS REPORT ---
Author Author RAMSES ROCK [facility] eClinicalWorks Address Unknown Phone Unavailable Care Team Providers Care Steam Table Attendant Name Role Phone RAMSES ROCK CP Unavailable [...] unspecified vessel or lesion type, unspecified whether [place] or transplanted heart I25.10 Active Problem Edema, unspecified type R60.9 Active Problem Anemia D64.9 Active Problem Chronic back pain M54.9 Active Problem GERD (gastroesophageal reflux disease) K21.9 Active Medications No Known Medications Results No Known Results Summary Purpose eClinicalWorks Submission
--- OUTSIDE RECORDS SUMMARY | 2017-02-14 09:19 | XMS REPORT ---
Author RAMSES Reis [facility] eClinicalWorks Address Unknown Phone Unavailable Care Team Providers Care Slitter Scorer Cut Off Operator Name Role Phone RAMSES ROCK CP [...] I25.10 Active Assessment Anemia D64.9 Active Assessment GERD (gastroesophageal reflux disease) K21.9 Active Assessment Environmental allergies Z91.09 Active Assessment Hypertension I10 Active Assessment Atrial fibrillation I48.91 Active Assessment Obesity E66.9 Active Assessment CAD (coronary artery disease) I25.10 Active Assessment Anxiety F41.9 Active Medications Medication Code System Code Instructions Start Date End Date Status Dosage Loratadine [facility] [address]-42 10 mg April 27, 2012 1 time per day Zocor [facility] [address]-93 20 MG Once a day April 26, 2013 take 1 tablet (20 mg) by oral route once daily in the evening Flonase [facility] [address]-23 50 mcg/actuation April 26, 2013 1 sprays by Nasal route 2 times per day in each nostril Furosemide [facility] [address]-33 40 mg April 26, 2013 take 1 tablet ( 40 mg) by oral route once daily verapamil [facility] 0 240 mg April 26, 2013 take 1 tablet by Oral route 1 time per day at bedtime Omeprazole [facility] [address]-82 40 mg April 26, 2013 2 Capsule by Oral route 1 time per day Singulair [facility] [address]-32 10 MG Orally Once a day 1 TABLET BY ORAL ROUTE 1 TIME PER DAY Metoprolol Tartrate [facility] [address]-62 100 MG Orally Twice a day April 26, 2013 take 1 tablet by oral route 2 times per day Saxenda (Dose Escalation) [facility] [address]-85 18 mg/3 mL Subcutaneous Once a day Nov 26, 2014 0.6 mg QD x 7 days, 1.2 mg QD x 7 days, 1.8 mg QD x 7 days, 2.4 mg QD x 7 days, then 3 mg QD (GOAL) Hydrocodone-Acetaminophen [facility] [address]-25 10-325 MG Orally every 6 hrs Nov 26, 2014 Dec 26, 2014 1 tablet as needed Flecainide Acetate [facility] [address]-81 100 MG Orally every 12 hrs Nov 23, 2014 1 tablet Coumadin [facility] [address]-65 7.5 MG Once a day April 26, 2013 take 1 tablet (7.5 mg) by oral route once daily Combivent Respimat [facility] [address]-07 20-100 mcg/actuation Apr 07, 2014 inhale 1 puff by inhalation route 4 times per day ; may take additional puffs as needed not to exceed 6 puffs in 24hrs Lasix [facility] [address]-40 40 MG Orally Once a day Nov 26, 2014 1 tablet Procedures Procedure Coding System Code Date COMPREHEN METABOLIC PANEL CPT-4 25682 Nov 26, 2014 LIPID PANEL CPT-4 49974 Nov 26, 2014 COMPLETE CBC W/AUTO DIFF WBC CPT-4 80700 Nov 26, 2014 No Charge CPT-4 49306 Nov 26, 2014 Office Visit, New Pt., Level 4 CPT-4 98339 Nov 26, 2014 ASSAY OF FREE THYROXINE CPT-4 98252 Nov 26, 2014 PROTHROMBIN TIME CPT-4 17442 Nov 26, 2014 VENIPUNCT, ROUTINE* CPT-4 16438 Nov 26, 2014 ELECTROCARDIOGRAM, TRACING CPT-4 09323 Nov 26, 2014 Vital Signs Date/Time: Nov 26, 2014 Temperature 98.3 F Weight 391.7 lbs Height 70 in BMI 56.20 Index Blood Pressure Diastolic 80 mmHg Blood Pressure Systolic 130 mmHg Cardiac Monitoring Heart Rate 92 bpm Results Name Result Date Reference Range Unit Abnormality Flag IRON + TIBC INR (IN HOUSE) TSH W/ FREE T4 ----T4,Free(Direct) 1.17 [id number] 0.82-1.77 ng/dL ----TSH 0.048 [id number] 0.450-4.500 uIU/mL L Summary Purpose eClinicalWorks Submission
--- OUTSIDE RECORDS SUMMARY | 2017-02-14 09:19 | XMS REPORT ---
Author Author RAMSES ROCK Organization [facility] Address [address] [place] [address] Care Team Providers Care Retail Sales Advisor Name Role Phone JAMES ROCKNETTE Unavailable PROBLEMS Type Condition ICD9-CM Code [id number] Code Onset Dates Condition Status SNOMED Code Problem Edema, unspecified type R60.9 Active 767066462 Problem Hypercholesterolemia E78.0 Active 24841196 Problem Coronary artery disease, angina presence unspecified, unspecified vessel or lesion type, unspecified whether [place] or transplanted heart I25.10 Active 88033082 Problem Reactive depression F32.9 Active 16128824 Problem Hyperlipidemia, unspecified hyperlipidemia type E78.5 Active 43793101 Problem Mild intermittent asthma without complication J45.20 Active 083090238 Problem Gastroesophageal reflux disease, esophagitis presence not specified K21.9 Active 299098991 Problem Other constipation K59.09 Active 046902233 Problem Cluster headache, not intractable, unspecified chronicity pattern G44.009 Active 065481099 Problem Anemia D64.9 Active 572560351 Problem Chronic back pain M54.9 Active 280396165 Problem Environmental allergies Z91.09 Active 295467139 Problem Hypertension I10 Active 63256319 Problem GERD (gastroesophageal reflux disease) K21.9 Active 972663373 Problem Obesity E66.9 Active 201669590 Problem Atrial fibrillation I48.91 Active 16842306 Problem Anxiety F41.9 Active 17310882 ALLERGIES Unknown Allergies SOCIAL HISTORY No smoking Hx information available PLAN OF CARE VITAL SIGNS MEDICATIONS Unknown Medications RESULTS No Results PROCEDURES No Known procedures IMMUNIZATIONS No Known Immunizations
--- OUTSIDE RECORDS SUMMARY | 2017-02-14 09:19 | XMS REPORT ---
Author Author RAMSES ROCK Organization [facility] Address [address] [place] [address] Care Team Providers Care Cement Mason [employer] Name Role Phone RAMSES ROCK Unavailable PROBLEMS Type Condition ICD9-CM Code IAV03-DH Code Onset Dates Condition Status SNOMED Code Problem Edema, unspecified type R60.9 Active 911194291 Problem Hypercholesterolemia E78.0 Active 95721847 Problem Coronary artery disease, angina presence unspecified, unspecified vessel or lesion type, unspecified whether [place] or transplanted heart I25.10 Active 84049192 Problem Reactive depression F32.9 Active 04859452 Problem Hyperlipidemia, unspecified hyperlipidemia type E78.5 Active 32675808 Problem Mild intermittent asthma without complication J45.20 Active 490143590 Problem Gastroesophageal reflux disease, esophagitis presence not specified K21.9 Active 714725420 Problem Cluster headache, not intractable, unspecified chronicity pattern G44.009 Active 787620802 Problem Other constipation K59.09 Active 253662697 Problem Anxiety F41.9 Active 62430785 Problem Hypertension I10 Active 69028343 Problem Anemia D64.9 Active 107439104 Problem Environmental allergies Z91.09 Active 812459176 Problem Atrial fibrillation I48.91 Active 68860460 Problem Chronic back pain M54.9 Active 073696672 Problem Obesity E66.9 Active 941603244 Problem GERD (gastroesophageal reflux disease) K21.9 Active 928606757 ALLERGIES No Information SOCIAL HISTORY Never Assessed [...]
--- OUTSIDE RECORDS SUMMARY | 2017-02-14 09:19 | XMS REPORT ---
Author Author PRANAV RAMSES Organization [facility] Address [address] [place] [address] Care Team Providers Care Extender Name Role Phone RAMSES ROCK Unavailable PROBLEMS Type Condition ICD9-CM Code QWW55-UA Code Onset Dates Condition Status SNOMED Code Problem Edema, unspecified type R60.9 Active 198146965 Problem Hypercholesterolemia E78.0 Active 18074975 Problem Coronary artery disease, angina presence unspecified, unspecified vessel or lesion type, unspecified whether [place] or transplanted heart I25.10 Active 91066227 Problem Reactive depression F32.9 Active 35238683 Problem Hyperlipidemia, unspecified hyperlipidemia type E78.5 Active 56052075 Problem Mild intermittent asthma without complication J45.20 Active 454676012 Problem Gastroesophageal reflux disease, esophagitis presence not specified K21.9 Active 354134371 Problem Cluster headache, not intractable, unspecified chronicity pattern G44.009 Active 123942903 Problem Other constipation K59.09 Active 770211516 Problem Anxiety F41.9 Active 31521389 Problem Hypertension I10 Active 28716328 Problem Anemia D64.9 Active 905905463 Problem Environmental allergies Z91.09 Active 667416812 Problem Atrial fibrillation I48.91 Active 11858558 Problem Chronic back pain M54.9 Active 728738494 Problem Obesity E66.9 Active 316601649 Problem GERD (gastroesophageal reflux disease) K21.9 Active 735611343 ALLERGIES Substance Reaction Event Type Date Status Prozac Unknown Drug Allergy Apr, Active Morphine Sulfate Unknown Drug Allergy Apr, Active Keflex chest pain and bradychardia Drug Allergy Apr, Active Cipro chest pain Drug Allergy Apr, Active Amoxicillin Unknown Drug Allergy Apr, Active wheat Unknown Non Drug Allergy Apr, Active shellfish Unknown Non Drug Allergy Apr, Active Ultram Unknown Drug Allergy Apr, Active milk Unknown Non Drug Allergy Apr, Active Reglan Unknown Drug Allergy Apr, Active corn Unknown Non Drug Allergy Apr, Active eggs Unknown Non Drug Allergy Apr, Active SOCIAL HISTORY Never Assessed PLAN OF CARE Activity Details Follow Up 3 Months, prn Reason: VITAL SIGNS Height 70 in 2016-05-08 Weight 332.8 lbs 2016-05-08 Temperature 98.2 degrees Fahrenheit 2016-05-08 Heart Rate 72 bpm 2016-05-08 Respiratory Rate 18 2016-05-08 BMI 47.75 kg/m2 2016-05-08 Blood pressure systolic 140 mmHg 2016-05-08 Blood pressure diastolic 92 mmHg 2016-05-08 MEDICATIONS Medication Instructions Dosage Frequency Start Date End Date Duration Status Singulair 10 MG Orally Once a day 1 TABLET BY ORAL ROUTE 1 TIME PER DAY 24h Active Loratadine 10 MG Orally Once a day 1 tablet 24h Active Combivent Respimat 20-100 MCG/ACT INHALE 1 PUFF FOUR TIMES DAILY DIRECTED Active Xarelto 20 MG Orally Once a day 1 tablet with food 24h Active Percocet 7.5-325 MG Orally 3 times a day 1 tablet as needed 8h Apr, Active Sotalol HCl 160 MG Orally every 12 hrs 1 tablet 12h Active Furosemide 40 TAKE 1 TABLET BY MOUTH EVERY DAY IN THE MORNING 30 Active Topamax 50 MG Orally Twice a day 1 tablet 12h Active Xanax 1 MG Orally 3 times a day Rx to be filled on 02/25/16 1 tablet Active Verapamil HCl CR 240 MG Orally Once a day 1 tablet 24h Active Flonase Allergy Relief 50 MCG/ACT Nasally Once a day 1 spray in each nostril 24h June, Active Lopid 600 MG Orally Twice a day 1 tablet 12h Active MiraLax 17 gm/dose Orally Once a day 17 grams mixed in 8 oz of water or juice 24h Active Lexapro 20 mg Orally Once a day 1 tablet 24h 30 Active Prilosec 40 mg Orally Twice a day 1 capsule 12h Active Metoprolol Tartrate 100 MG Orally Twice a day 1 tablet 12h Active Zocor 20 MG take 1 tablet (20 mg) by oral route once daily in the evening Active Tylenol 325 MG Orally every 6 hrs 2 tablets as needed 6h Active RESULTS Name Result Date Reference Range AMERITOX 2016-05-08 PROCEDURES Procedure Date Ordered Result Body Site No Charge May 08, 2016 IMMUNIZATIONS No Known Immunizations MEDICAL (GENERAL) HISTORY Type Description Date Medical History Irregular heart beat Medical History Hypertension Medical History GERD Medical History diverticulitis Medical History Gynecological disorder POS and PCOS Medical History Epilepsy and recurrent seizures r/t vertigo Surgical History Genito-urinary tract surgery/endometriosis Surgical History X2 Hospitalization History surgeries Hospitalization History A Fib multiple times
--- OUTSIDE RECORDS SUMMARY | 2017-02-14 09:19 | XMS REPORT ---
Author Author RAMSES ROCK Organization [facility] Address [address] [place] [address] Care Team Providers Care Cotton Classer Aide Name Role Phone RAMSES ROCK Unavailable PROBLEMS Type Condition ICD9-CM Code GBE23-[id number] Code Onset Dates Condition Status SNOMED Code Problem Edema, unspecified type R60.9 Active 026238636 Problem Hypercholesterolemia E78.0 Active 70745479 Problem Coronary artery disease, angina presence unspecified, unspecified vessel or lesion type, unspecified whether [place] or transplanted heart I25.10 Active 24307977 Problem Reactive depression F32.9 Active 27306319 Problem Hyperlipidemia, unspecified hyperlipidemia type E78.5 Active 52328916 Problem Mild intermittent asthma without complication J45.20 Active 625160799 Problem Gastroesophageal reflux disease, esophagitis presence not specified K21.9 Active 422049666 Problem Cluster headache, not intractable, unspecified chronicity pattern G44.009 Active 444312661 Problem Other constipation K59.09 Active 909793950 Problem Anxiety F41.9 Active 46197044 Problem Hypertension I10 Active 68627845 Problem Anemia D64.9 Active 191105168 Problem Environmental allergies Z91.09 Active 063586840 Problem Atrial fibrillation I48.91 Active 49576307 Problem Chronic back pain M54.9 Active 067280881 Problem Obesity E66.9 Active 964689497 Problem GERD (gastroesophageal reflux disease) K21.9 Active 708917366 ALLERGIES No Information SOCIAL HISTORY Never Assessed [...]
--- OUTSIDE RECORDS SUMMARY | 2017-02-14 09:19 | XMS REPORT ---
Author Author RAMSES ROCK [facility] eClinicalWorks Address Unknown Phone Unavailable Care Team Providers Care Supervisor [employer] Name Role Phone RAMSES ROCK CP Unavailable [...] unspecified vessel or lesion type, unspecified whether [place] or transplanted heart I25.10 Active Problem Gastroesophageal reflux disease, esophagitis presence not specified K21.9 Active Problem Obesity E66.9 Active Problem Hypertension I10 Active Problem Edema, unspecified type R60.9 Active Problem Anxiety F41.9 Active Medications Medication Code System Code Instructions Start Date End Date Status Dosage Hydrocodone-Acetaminophen [facility] [address]-18 10-325 MG Orally every 6 hrs 1 tablet as needed Results No Known Results Summary Purpose eClinicalWorks Submission
--- OUTSIDE RECORDS SUMMARY | 2017-02-14 09:20 | XMS REPORT ---
Author Author RAMSES ROCK Organization [facility] Address [address] [place] [address] Care Team Providers Care Manager Lean Name Role Phone RAMSES ROCK Unavailable PROBLEMS Type Condition ICD9-CM Code [id number] Code Onset Dates Condition Status SNOMED Code Problem Edema, unspecified type R60.9 Active 418160023 Problem Hypercholesterolemia E78.0 Active 74161547 Problem Coronary artery disease, angina presence unspecified, unspecified vessel or lesion type, unspecified whether [place] or transplanted heart I25.10 Active 14992530 Problem Reactive depression F32.9 Active 05155962 Problem Hyperlipidemia, unspecified hyperlipidemia type E78.5 Active 34191072 Problem Mild intermittent asthma without complication J45.20 Active 065710874 Problem Gastroesophageal reflux disease, esophagitis presence not specified K21.9 Active 665522468 Problem Cluster headache, not intractable, unspecified chronicity pattern G44.009 Active 851006180 Problem Other constipation K59.09 Active 652893418 Problem Anxiety F41.9 Active 32909614 Problem Hypertension I10 Active 54958443 Problem Anemia D64.9 Active 102011211 Problem Environmental allergies Z91.09 Active 755403340 Problem Atrial fibrillation I48.91 Active 91214422 Problem Chronic back pain M54.9 Active 899717869 Problem Obesity E66.9 Active 590173116 Problem GERD (gastroesophageal reflux disease) K21.9 Active 294638984 ALLERGIES Unknown Allergies SOCIAL HISTORY No smoking Hx information available PLAN OF CARE VITAL SIGNS MEDICATIONS Medication Instructions Dosage Frequency Start Date End Date Duration Status Xanax 1 MG Orally 3 times a day Rx to be filled on 02/25/16 1 tablet Dec Active Hydrocodone-Acetaminophen 10-325 MG Orally every 6 hrs 1 tablet as needed 6h Feb, Active RESULTS No Results PROCEDURES No Known procedures IMMUNIZATIONS No Known Immunizations
--- OUTSIDE RECORDS SUMMARY | 2017-02-14 09:20 | XMS REPORT ---
Author Author RAMSES ROKC Organization [facility] Address [address] [place] [address] Care Team Providers Care Obstetrical Nurse Name Role Phone JAMES ROCKNETTE Unavailable PROBLEMS Type Condition ICD9-CM Code KFS67-WN Code Onset Dates Condition Status SNOMED Code Problem Edema, unspecified type R60.9 Active 244951340 Problem Hypercholesterolemia E78.0 Active 69130436 Problem Coronary artery disease, angina presence unspecified, unspecified vessel or lesion type, unspecified whether [place] or transplanted heart I25.10 Active 87590609 Problem Reactive depression F32.9 Active 76333771 Problem Hyperlipidemia, unspecified hyperlipidemia type E78.5 Active 90472676 Problem Mild intermittent asthma without complication J45.20 Active 558132349 Problem Gastroesophageal reflux disease, esophagitis presence not specified K21.9 Active 622891489 Problem Cluster headache, not intractable, unspecified chronicity pattern G44.009 Active 507577744 Problem Other constipation K59.09 Active 865092902 Problem Anxiety F41.9 Active 55193744 Problem Hypertension I10 Active 95167516 Problem Anemia D64.9 Active 110993474 Problem Environmental allergies Z91.09 Active 124444681 Problem Atrial fibrillation I48.91 Active 76360217 Problem Chronic back pain M54.9 Active 643677863 Problem Obesity E66.9 Active 333717248 Problem GERD (gastroesophageal reflux disease) K21.9 Active 260281959 ALLERGIES Unknown Allergies SOCIAL HISTORY No smoking Hx information available PLAN OF CARE VITAL SIGNS MEDICATIONS Medication Instructions Dosage Frequency Start Date End Date Duration Status Xanax 1 MG Orally 3 times a day Rx to be filled on 02/25/16 1 tablet Dec Active RESULTS No Results PROCEDURES No Known procedures IMMUNIZATIONS No Known Immunizations
--- OUTSIDE RECORDS SUMMARY | 2017-02-14 09:20 | XMS REPORT ---
Author Author RAMSES ROCK [facility] eClinicalWorks Address Unknown Phone Unavailable Care Team Providers Care Central Office Frame Wirer Name Role Phone RAMSES ROCK CP Unavailable [...] Start Date End Date Status Dosage Hydrocodone-Acetaminophen [facility] [address]-20 10-325 MG Orally every 6 hrs 1 tablet as needed Results No Known Results Summary Purpose eClinicalWorks Submission
--- OUTSIDE RECORDS SUMMARY | 2017-02-14 09:20 | XMS REPORT ---
Author Author RAMSES ROCK Organization [facility] Address [address] [place] [address] Care Team Providers Care Rotary Cutter Name Role Phone RAMSES ROCK Unavailable PROBLEMS Type Condition ICD9-CM Code IPZ15-FR Code Onset Dates Condition Status SNOMED Code Problem Edema, unspecified type R60.9 Active 353625792 Problem Hypercholesterolemia E78.0 Active 33503436 Problem Coronary artery disease, angina presence unspecified, unspecified vessel or lesion type, unspecified whether [place] or transplanted heart I25.10 Active 37827022 Problem Reactive depression F32.9 Active 68972584 Problem Hyperlipidemia, unspecified hyperlipidemia type E78.5 Active 61400595 Problem Mild intermittent asthma without complication J45.20 Active 572074087 Problem Gastroesophageal reflux disease, esophagitis presence not specified K21.9 Active 613233079 Problem Cluster headache, not intractable, unspecified chronicity pattern G44.009 Active 309367803 Problem Other constipation K59.09 Active 574749102 Problem Anxiety F41.9 Active 96147967 Problem Hypertension I10 Active 98237147 Problem Anemia D64.9 Active 974423923 Problem Environmental allergies Z91.09 Active 232540119 Problem Atrial fibrillation I48.91 Active 05397393 Problem Chronic back pain M54.9 Active 836860286 Problem Obesity E66.9 Active 672196967 Problem GERD (gastroesophageal reflux disease) K21.9 Active 351173501 ALLERGIES No Information SOCIAL HISTORY Never Assessed [...]
--- OUTSIDE RECORDS SUMMARY | 2017-02-14 09:20 | XMS REPORT ---
Author Author RAMSES ROCK Organization [facility] Address [address] [place] [address] Care Team Providers Care Shuttle Spotter Name Role Phone RAMSES ROCK Unavailable PROBLEMS Type Condition ICD9-CM Code JEA59-FV Code Onset Dates Condition Status SNOMED Code Problem Edema, unspecified type R60.9 Active 100645392 Problem Hypercholesterolemia E78.0 Active 87378932 Problem Coronary artery disease, angina presence unspecified, unspecified vessel or lesion type, unspecified whether [place] or transplanted heart I25.10 Active 30962998 Problem Reactive depression F32.9 Active 29226874 Problem Hyperlipidemia, unspecified hyperlipidemia type E78.5 Active 57590751 Problem Mild intermittent asthma without complication J45.20 Active 750101112 Problem Gastroesophageal reflux disease, esophagitis presence not specified K21.9 Active 401121635 Problem Cluster headache, not intractable, unspecified chronicity pattern G44.009 Active 276947859 Problem Other constipation K59.09 Active 145071855 Problem Anxiety F41.9 Active 53257070 Problem Hypertension I10 Active 26682575 Problem Anemia D64.9 Active 300618665 Problem Environmental allergies Z91.09 Active 100158162 Problem Atrial fibrillation I48.91 Active 89845386 Problem Chronic back pain M54.9 Active 819519019 Problem Obesity E66.9 Active 900312717 Problem GERD (gastroesophageal reflux disease) K21.9 Active 995089491 ALLERGIES No Information SOCIAL HISTORY Never Assessed [...]
--- OUTSIDE RECORDS SUMMARY | 2017-02-14 09:20 | XMS REPORT ---
Author Author PRANAV RAMSES Organization [facility] Address [address] [place] [address] Care Team Providers Care Calendering Machine Operator Name Role Phone RAMSES ROCK Unavailable PROBLEMS Type Condition ICD9-CM Code NAV20-BL Code Onset Dates Condition Status SNOMED Code Problem Edema, unspecified type R60.9 Active 597687060 Problem Hypercholesterolemia E78.0 Active 77924337 Problem Coronary artery disease, angina presence unspecified, unspecified vessel or lesion type, unspecified whether [place] or transplanted heart I25.10 Active 11513218 Problem Reactive depression F32.9 Active 22011598 Problem Hyperlipidemia, unspecified hyperlipidemia type E78.5 Active 61900367 Problem Mild intermittent asthma without complication J45.20 Active 921381179 Problem Gastroesophageal reflux disease, esophagitis presence not specified K21.9 Active 790602872 Problem Cluster headache, not intractable, unspecified chronicity pattern G44.009 Active 224599130 Problem Other constipation K59.09 Active 701462559 Problem Anxiety F41.9 Active 75674435 Problem Hypertension I10 Active 63694563 Problem Anemia D64.9 Active 909286434 Problem Environmental allergies Z91.09 Active 514556803 Problem Atrial fibrillation I48.91 Active 76053339 Problem Chronic back pain M54.9 Active 474525471 Problem Obesity E66.9 Active 851993441 Problem GERD (gastroesophageal reflux disease) K21.9 Active 548264979 ALLERGIES Substance Reaction Event Type Date Status Prozac Unknown Drug Allergy June, Active Morphine Sulfate Unknown Drug Allergy June, Active Keflex chest pain and bradychardia Drug Allergy June, Active Cipro chest pain Drug Allergy June, Active Amoxicillin Unknown Drug Allergy June, Active wheat Unknown Non Drug Allergy June, Active shellfish Unknown Non Drug Allergy June, Active Ultram Unknown Drug Allergy June, Active milk Unknown Non Drug Allergy June, Active Reglan Unknown Drug Allergy June, Active corn Unknown Non Drug Allergy June, Active eggs Unknown Non Drug Allergy June, Active SOCIAL HISTORY Never Assessed PLAN OF CARE Activity Details Follow Up 4 Weeks Reason: VITAL SIGNS Height 70 in 2016-07-12 Weight 331 lbs 2016-07-12 Temperature 98.5 degrees Fahrenheit 2016-07-12 Heart Rate 72 bpm 2016-07-12 Respiratory Rate 18 2016-07-12 BMI 47.49 kg/m2 2016-07-12 Blood pressure systolic 132 mmHg 2016-07-12 Blood pressure diastolic 88 mmHg 2016-07-12 MEDICATIONS Medication Instructions Dosage Frequency Start Date End Date Duration Status Sotalol HCl 160 MG Orally every 12 hrs 1 tablet 12h Active Singulair 10 MG Orally Once a day 1 TABLET BY ORAL ROUTE 1 TIME PER DAY 24h Active Classic 28-0.8 MG Orally Once a day one tablet 24h June, Active Combivent Respimat 20-100 MCG/ACT INHALE 1 PUFF FOUR TIMES DAILY DIRECTED Active Topamax 50 MG Orally Twice a day 1 tablet 12h Active Loratadine 10 TAKE 1 TABLET BY MOUTH EVERY DAY 30 Active Furosemide 40 TAKE 1 TABLET BY MOUTH EVERY MORNING 90 Active Lovenox 40 MG/0.4ML Subcutaneous Once a day 0.4 ml 24h June, Active Lopid 600 MG Orally Twice a day 1 tablet 12h Active MiraLax 17 gm/dose Orally Once a day 17 grams mixed in 8 oz of water or juice 24h Active Lexapro 10 mg Orally Once a day 1 tablet 24h 30 Active Lexapro 20 mg Orally Once a day 1 tablet 24h Active Metoprolol Tartrate 100 MG Orally Twice a day 1 tablet 12h Active Percocet 7.5-325 MG Orally 3 times a day 1 tablet as needed 8h May, Active Verapamil HCl CR 240 MG Orally Once a day 1 tablet 24h Active RESULTS No Results PROCEDURES No Known [...]
--- OUTSIDE RECORDS SUMMARY | 2017-02-14 09:20 | XMS REPORT ---
Author RAMSES Reis [facility] [employer]Clinical[employer] Address Unknown Phone Unavailable Care Team Providers Care Technology Support Analyst Name Role Phone RAMSES ROCK CP Unavailable [...] CAD (coronary artery disease) I25.10 Active Medications No Known Medications Results No Known Results Summary Purpose eClinicalWorks Submission
--- OUTSIDE RECORDS SUMMARY | 2017-02-14 09:20 | XMS REPORT ---
Author Author RAMSES ROCK Organization [facility] Address [address] [place] [address] Care Team Providers Care Cap Maker Name Role Phone FRANCIS ROCKE Unavailable PROBLEMS Type Condition ICD9-CM Code TES45-FD Code Onset Dates Condition Status SNOMED Code Problem Edema, unspecified type R60.9 Active 704200811 Problem Hypercholesterolemia E78.0 Active 91188329 Problem Coronary artery disease, angina presence unspecified, unspecified vessel or lesion type, unspecified whether [place] or transplanted heart I25.10 Active 78971494 Problem Reactive depression F32.9 Active 97259097 Problem Hyperlipidemia, unspecified hyperlipidemia type E78.5 Active 76144157 Problem Mild intermittent asthma without complication J45.20 Active 285455424 Problem Gastroesophageal reflux disease, esophagitis presence not specified K21.9 Active 730050857 Problem Cluster headache, not intractable, unspecified chronicity pattern G44.009 Active 797834196 Problem Other constipation K59.09 Active 331476876 Problem Anxiety F41.9 Active 82019001 Problem Hypertension I10 Active 44852375 Problem Anemia D64.9 Active 445304251 Problem Environmental allergies Z91.09 Active 306451716 Problem Atrial fibrillation I48.91 Active 02264463 Problem Chronic back pain M54.9 Active 180435714 Problem Obesity E66.9 Active 617048133 Problem GERD (gastroesophageal reflux disease) K21.9 Active 169807926 ALLERGIES No Information SOCIAL HISTORY Never Assessed PLAN OF CARE VITAL SIGNS MEDICATIONS Medication Instructions Dosage Frequency Start Date End Date Duration Status Omeprazole 40 Orally 2 times a day 1 capsule 12h 90 days Active RESULTS No Results PROCEDURES No [...]
--- OUTSIDE RECORDS SUMMARY | 2017-02-14 09:20 | XMS REPORT ---
Author Author RAMSES ROCK [facility] eClinicalWorks Address Unknown Phone Unavailable Care Team Providers Care Sand Drier Name Role Phone RAMSES ROCK CP Unavailable [...] Start Date End Date Status Dosage Hydrocodone-Acetaminophen [facility] [address]-78 10-250 MG orally 4 times per day April 27, 2012 1 tablet as needed Xanax [facility] [address]-53 1 MG Orally 3 times a day Dec 25, 2014 1 tablet Results No Known Results Summary Purpose eClinicalWorks Submission
--- OUTSIDE RECORDS SUMMARY | 2017-02-14 09:20 | XMS REPORT ---
Author Author RAMSES ROCK [facility] eClinicalWorks Address Unknown Phone Unavailable Care Team Providers Care Fisher Gill Net Name Role Phone RAMSES ROCK CP Unavailable [...] unspecified vessel or lesion type, unspecified whether [place] or transplanted heart I25.10 Active Problem Gastroesophageal reflux disease, esophagitis presence not specified K21.9 Active Problem Obesity E66.9 Active Problem Hypertension I10 Active Problem Edema, unspecified type R60.9 Active Problem Anxiety F41.9 Active Medications Medication Code System Code Instructions Start Date End Date Status Dosage Hydrocodone-Acetaminophen [facility] [address]-66 10-325 MG Orally every 6 hrs 1 tablet as needed Results No Known Results Summary Purpose eClinicalWorks Submission
--- OUTSIDE RECORDS SUMMARY | 2017-02-14 09:20 | XMS REPORT ---
Author Author RAMSES ROCK [facility] [employer] Address Unknown Phone Unavailable Care Team Providers Care Financial Assistance Advisor Name Role Phone RAMSES ROCK CP Unavailable [...] Start Date End Date Status Dosage Alprazolam [facility] [address]-54 1 MG Orally Three times a day 1 tablet as needed Results No Known Results Summary Purpose eClinicalWorks Submission
--- OUTSIDE RECORDS SUMMARY | 2017-02-14 09:20 | XMS REPORT ---
Author Author MILLY ARNETT [facility] eClinicalWorks Address Unknown Phone Unavailable Care Team Providers Care Direct Mail Manager Name Role Phone MILLY ARNETT CP Unavailable Allergies No Known Allergies Problems Problem Type Condition Code Onset Dates Condition Status Problem GERD (gastroesophageal reflux disease) K21.9 Active Problem Environmental allergies Z91.09 Active Problem Atrial fibrillation I48.91 Active Problem Anemia D64.9 Active Problem Chronic back pain M54.9 Active Problem Hypercholesterolemia E78.0 Active Problem Coronary artery disease, angina presence unspecified, unspecified vessel or lesion type, unspecified whether [place] or transplanted heart I25.10 Active Problem Gastroesophageal reflux disease, esophagitis presence not specified K21.9 Active Problem Obesity E66.9 Active Problem Hypertension I10 Active Problem Edema, unspecified type R60.9 Active Problem Anxiety F41.9 Active Medications No Known Medications Results No Known Results Summary Purpose eClinicalWorks Submission
--- OUTSIDE RECORDS SUMMARY | 2017-02-14 09:20 | XMS REPORT ---
Author Author RAMSES ROCK [facility] eClinicalWorks Address Unknown Phone Unavailable Care Team Providers Care Storage Consultant Name Role Phone RAMSES ROCK CP Unavailable [...] unspecified vessel or lesion type, unspecified whether [place] or transplanted heart I25.10 Active Problem Gastroesophageal reflux disease, esophagitis presence not specified K21.9 Active Problem Obesity E66.9 Active Problem Hypertension I10 Active Problem Edema, unspecified type R60.9 Active Problem Anxiety F41.9 Active Medications No Known Medications Results No Known Results Summary Purpose eClinicalWorks Submission
--- OUTSIDE RECORDS SUMMARY | 2017-02-14 09:20 | XMS REPORT ---
Author Author RAMSES ROCK Organization [facility] Address [address] [place] [address] Care Team Providers Care Decision Unit Rn Name Role Phone JAMES ROCKNETTE Unavailable PROBLEMS Type Condition ICD9-CM Code PED84-KG Code Onset Dates Condition Status SNOMED Code Problem Edema, unspecified type R60.9 Active 793838081 Problem Hypercholesterolemia E78.0 Active 26715916 Problem Coronary artery disease, angina presence unspecified, unspecified vessel or lesion type, unspecified whether [place] or transplanted heart I25.10 Active 34949871 Problem Reactive depression F32.9 Active 94175861 Problem Hyperlipidemia, unspecified hyperlipidemia type E78.5 Active 57965414 Problem Mild intermittent asthma without complication J45.20 Active 226710375 Problem Gastroesophageal reflux disease, esophagitis presence not specified K21.9 Active 514069917 Problem Cluster headache, not intractable, unspecified chronicity pattern G44.009 Active 532521320 Problem Other constipation K59.09 Active 734512223 Problem Anxiety F41.9 Active 57860358 Problem Hypertension I10 Active 85836615 Problem Anemia D64.9 Active 762658066 Problem Environmental allergies Z91.09 Active 486926444 Problem Atrial fibrillation I48.91 Active 35267387 Problem Chronic back pain M54.9 Active 078926524 Problem Obesity E66.9 Active 442239545 Problem GERD (gastroesophageal reflux disease) K21.9 Active 441375645 ALLERGIES No Information SOCIAL HISTORY Never Assessed PLAN OF CARE VITAL SIGNS MEDICATIONS Medication Instructions Dosage Frequency Start Date End Date Duration Status Prilosec 40 mg Orally Twice a day 1 capsule 12h Active RESULTS No Results PROCEDURES No Known [...]
--- OUTSIDE RECORDS SUMMARY | 2017-02-14 09:21 | XMS REPORT ---
Author Author EDDY ROQUE Organization [facility] Address [address] [place] [address] Care Team Providers Care Rotor Pilot Name Role Phone EDDY ROQUE Unavailable PROBLEMS Type Condition ICD9-CM Code TOD05-WP Code Onset Dates Condition Status SNOMED Code Problem Edema, unspecified type R60.9 Active 988063686 Problem Hypercholesterolemia E78.0 Active 71462246 Problem Coronary artery disease, angina presence unspecified, unspecified vessel or lesion type, unspecified whether [place] or transplanted heart I25.10 Active 48469862 Problem Reactive depression F32.9 Active 62758701 Problem Hyperlipidemia, unspecified hyperlipidemia type E78.5 Active 82593520 Problem Mild intermittent asthma without complication J45.20 Active 892690536 Problem Gastroesophageal reflux disease, esophagitis presence not specified K21.9 Active 907924901 Problem Other constipation K59.09 Active 007210784 Problem Cluster headache, not intractable, unspecified chronicity pattern G44.009 Active 069701419 Problem Anemia D64.9 Active 420928800 Problem Chronic back pain M54.9 Active 843165449 Problem Environmental allergies Z91.09 Active 432887339 Problem Hypertension I10 Active 22115262 Problem GERD (gastroesophageal reflux disease) K21.9 Active 740603587 Problem Obesity E66.9 Active 015439755 Problem Atrial fibrillation I48.91 Active 06181454 Problem Anxiety F41.9 Active 92114532 ALLERGIES Unknown Allergies SOCIAL HISTORY No smoking Hx information available PLAN OF CARE VITAL SIGNS MEDICATIONS Medication Instructions Dosage Frequency Start Date End Date Duration Status Hydrocodone-Acetaminophen 10-325 MG Orally every 6 hrs 1 tablet as needed 6h 18 Dec, 2015 28 days Active RESULTS No Results PROCEDURES No Known procedures IMMUNIZATIONS No Known Immunizations
--- OUTSIDE RECORDS SUMMARY | 2017-02-14 09:21 | XMS REPORT ---
Author Author RAMSES ROCK [facility] eClinicalWorks Address Unknown Phone Unavailable Care Team Providers Care Service Girl Name Role Phone RAMSES ROCK CP Unavailable [...] unspecified vessel or lesion type, unspecified whether [place] or transplanted heart I25.10 Active Problem Edema, unspecified type R60.9 Active Problem Anemia D64.9 Active Problem Chronic back pain M54.9 Active Problem GERD (gastroesophageal reflux disease) K21.9 Active Medications No Known Medications Results No Known Results Summary Purpose eClinicalWorks Submission
--- OUTSIDE RECORDS SUMMARY | 2017-02-14 09:21 | XMS REPORT ---
Author Author RAMSES ROCK [facility] eClinicalWorks Address Unknown Phone Unavailable Care Team Providers Care Business Continuity Manager Name Role Phone RAMSES ROCK CP Unavailable [...] Instructions Start Date End Date Status Dosage Trilipix [facility] [address]-85 135 MG Orally Once a day 1 capsule Results No Known Results Summary Purpose eClinicalWorks Submission
--- OUTSIDE RECORDS SUMMARY | 2017-02-14 09:21 | XMS REPORT ---
Author RAMSES Reis [facility] eClinicalWorks Address Unknown Phone Unavailable Care Team Providers Care [place] Assessor Name Role Phone RAMSES ROCK CP Unavailable Allergies, Adverse Reactions, Alerts Substance Reaction Event Type Prozac Info Not Available Drug Allergy Morphine Sulfate Info Not Available Drug Allergy Keflex chest pain and bradychardia Drug Allergy Cipro chest pain Drug Allergy Amoxicillin Info Not Available Drug Allergy wheat Info Not Available Non Drug Allergy shellfish Info Not Available Non Drug Allergy Ultram Info Not Available Drug Allergy milk Info Not Available Non Drug Allergy Reglan Info Not Available Drug Allergy corn Info Not Available Non Drug Allergy eggs Info Not Available Non Drug Allergy Problems Problem Type Condition Code Onset Dates Condition Status Problem GERD (gastroesophageal reflux disease) K21.9 Active Problem Environmental allergies Z91.09 Active Problem Atrial fibrillation I48.91 Active Problem Hypercholesterolemia E78.0 Active Assessment Coronary artery disease, angina presence unspecified, unspecified vessel or lesion type, unspecified whether [place] or transplanted heart I25.10 Active Problem Coronary artery disease, angina presence unspecified, unspecified vessel or lesion type, unspecified whether [place] or transplanted heart I25.10 Active Assessment Edema, unspecified type R60.9 Active Assessment Obesity, unspecified obesity severity, unspecified obesity type E66.9 Active Problem Gastroesophageal reflux disease, esophagitis presence not specified K21.9 Active Problem Obesity E66.9 Active Problem Hypertension I10 Active Problem Edema, unspecified type R60.9 Active Problem Anxiety F41.9 Active Assessment Chronic back pain M54.9 Active Assessment GERD (gastroesophageal reflux disease) K21.9 Active Assessment Gastroesophageal reflux disease, esophagitis presence not specified K21.9 Active Assessment Anemia D64.9 Active Assessment Hypertension I10 Active Assessment Atrial fibrillation I48.91 Active Assessment Environmental allergies Z91.09 Active Problem Anemia D64.9 Active Assessment Nausea R11.0 Active Assessment Anxiety F41.9 Active Problem Chronic back pain M54.9 Active Medications Medication Code System Code Instructions Start Date End Date Status Dosage Hydrocodone-Acetaminophen [facility] [address]-55 10-325 MG Orally every 6 hrs 1 tablet as needed Prilosec [facility] [address]-51 40 MG Orally Twice a day [address] [facility] [address]-64 1 MG Orally Three times a day 1 tablet as needed Metoprolol Tartrate [facility] [address]-81 100 MG Orally Twice a day [address] [facility] 79385311992 50 MG Orally Twice a day 1 tablet Flonase Allergy Relief [facility] [address]-44 50 MCG/ACT Nasally Once a day July 14, 2015 1 spray in each nostril Xarelto [facility] [address]-26 20 MG Orally Once a day 1 tablet with food Verapamil HCl CR [facility] [address]-29 240 MG Orally Once a day [address] [facility] 08296264408 20 MG take 1 tablet (20 mg) by oral route once daily in the evening Omeprazole [facility] 50525386506 40 TAKE 1 CAPSULE BY MOUTH EVERY DAY Zofran [facility] [address]-11 4 MG Orally 3 times a day September 13, [address] [facility] 29453565454 40 Orally Once a day TAKE 1 TABLET BY MOUTH DAILY Coly-Mycin S [facility] [address]-71 10 ml in the affected ear four times a day [address] [facility] 11657383600 10 MG Orally Once a day 1 TABLET BY ORAL ROUTE 1 TIME PER DAY Sotalol HCl [facility] [address]-45 160 MG Orally every 12 hrs [address] [facility] 73908554722 50 MCG/ACT 1 SPRAY IN EACH NOSTRIL 2 TIMES A DAY NASALLY 30 DAY(S) Loratadine [facility] [address]-71 10 MG Orally Once a day [address] [facility] [address]-15 325 MG Orally every 6 hrs July 14, 2015 2 tablets as needed Procedures Procedure Coding System Code Date Office Visit, Est Pt., Level 4 CPT-4 87089 September 13, 2015 ELECTROCARDIOGRAM, TRACING CPT-4 64571 September 13, 2015 Vital Signs Date/Time: September 13, 2015 Cardiac Monitoring Heart Rate 70 bpm Weight 350 lbs Height 70 in Blood Pressure Diastolic 80 mmHg Blood Pressure Systolic 124 mmHg Results No Known Results Summary Purpose eClinicalWorks Submission
--- OUTSIDE RECORDS SUMMARY | 2017-02-14 09:21 | XMS REPORT ---
Author RAMSES Reis [facility] eClinicalWorks Address Unknown Phone Unavailable Care Team Providers Care Electrician Control Equipment Name Role Phone RAMSES ROCK CP Unavailable [...] Instructions Start Date End Date Status Dosage Azithromycin [facility] [address]-04 250 MG Orally Once a day Feb 04, 2015 Feb 09, 2015 2 tablets on the first day, then 1 tablet daily for 4 days Results No Known Results Summary Purpose eClinicalWorks Submission
--- OUTSIDE RECORDS SUMMARY | 2017-02-14 09:21 | XMS REPORT ---
Author RAMSES Reis [facility] eClinicalWorks Address Unknown Phone Unavailable Care Team Providers Care Refrigeration Service Technician Name Role Phone RAMSES ROCK CP Unavailable [...] Condition Code Onset Dates Condition Status Assessment Atrial fibrillation I48.91 Active Problem Chronic back pain M54.9 Active Problem Anemia D64.9 Active Problem Obesity E66.9 Active Problem Hypertension I10 Active Problem Anxiety F41.9 Active Problem Atrial fibrillation I48.91 Active Problem GERD (gastroesophageal reflux disease) K21.9 Active Problem Environmental allergies Z91.09 Active Problem CAD (coronary artery disease) I25.10 Active Assessment Hypercholesterolemia E78.0 Active Assessment Anxiety F41.9 Active Assessment GERD (gastroesophageal reflux disease) K21.9 Active Assessment HTN (hypertension) I10 Active Assessment CAD (coronary artery disease) I25.10 Active Assessment Environmental allergies Z91.09 Active Assessment Obesity E66.9 Active Assessment Chronic back pain M54.9 Active Assessment Sinusitis J32.9 Active Assessment Anemia D64.9 Active Medications Medication Code System Code Instructions Start Date End Date Status Dosage Hydrocodone-Acetaminophen [facility] [address]-12 10-325 MG Orally every 6 hrs Mar 26, 2015 1 tablet as needed Xanax [facility] [address]-30 1 MG Orally 3 times a day Dec 25, 2014 1 tablet Sotalol HCl [facility] [address]-50 160 MG Orally Twice a day 1 tablet Coumadin [facility] 33843944329 6 MG Once a day take 1 tablet (7.5 mg) by oral route once daily Loratadine [facility] 40970484756 10 TAKE 1 TABLET BY MOUTH EVERY DAY Flonase [facility] [address]-10 50 MCG/ACT Nasally 2 times a day Jan 18, 2015 1 spray in each nostril Omeprazole [facility] [address]-99 40 MG April 26, 2013 2 Capsule by Oral route 1 time per day Metoprolol Tartrate [facility] [address]-63 100 MG Orally Twice a day April 26, 2013 take 1 tablet by oral route 2 times per day verapamil [place] 0 240 mg April 26, 2013 take 1 tablet by Oral route 1 time per day at bedtime Combivent Respimat [facility] [address]-14 20-100 mcg/actuation Apr 07, 2014 inhale 1 puff by inhalation route 4 times per day ; may take additional puffs as needed not to exceed 6 puffs in 24hrs Singulair [facility] [address]-81 10 MG Orally Once a day 1 TABLET BY ORAL ROUTE 1 TIME PER DAY Flintstones Plus Iron [facility] [address]793 1 Orally 2 times a day Feb 26, 2015 1 tablet Zocor [facility] [address]-96 20 MG Once a day April 26, 2013 take 1 tablet (20 mg) by oral route once daily in the evening Furosemide [facility] 71660071652 40 TAKE 1 TABLET BY MOUTH DAILY Trilipix [facility] [address]-12 135 MG Orally Once a day Nov 30, 2014 1 capsule Procedures Procedure Coding System Code Date ELECTROCARDIOGRAM, TRACING CPT-4 88915 Feb 26, 2015 COMPLETE CBC W/AUTO DIFF WBC CPT-4 80197 Feb 26, 2015 PROTHROMBIN TIME CPT-4 78516 Feb 26, 2015 LIPID PANEL CPT-4 46008 Feb 26, 2015 COMPREHEN METABOLIC PANEL CPT-4 38458 Feb 26, 2015 VENIPUNCT, ROUTINE* CPT-4 87904 Feb 26, 2015 Office Visit, Est Pt., Level 4 CPT-4 56694 Feb 26, 2015 Vital Signs Date/Time: Feb 26, 2015 Temperature 96.9 F Weight 373.2 lbs Height 70 in BMI 53.54 Index Blood Pressure Diastolic 60 mmHg Blood Pressure Systolic 130 mmHg Cardiac Monitoring Heart Rate 80 bpm Results Name Result Date Reference Range Unit Abnormality Flag CBC ----Lymphs 18 70544678 % ----Neutrophils 74 10683708 % ----Baso (Absolute) 0.0 73235617 0.0-0.2 x10E3/uL ----Hemoglobin 9.7 88728252 11.1-15.9 g/dL L ----Eos (Absolute) 0.2 61393577 0.0-0.4 x10E3/uL ----Hematocrit 33.2 35917938 34.0-46.6 % L ----Monocytes(Absolute) 0.6 08436903 0.1-0.9 x10E3/uL ----MCV 63 02713288 79-97 fL L ----Lymphs (Absolute) 1.7 29094854 0.7-3.1 x10E3/uL ----MCH 18.4 34787840 26.6-33.0 pg L ----Neutrophils (Absolute) 6.9 55504303 1.4-7.0 x10E3/uL ----MCHC 29.2 50270574 31.5-35.7 g/dL L ----Immature Granulocytes 0 89688897 % ----Basos 0 06259143 % ----RDW 19.6 34101842 12.3-15.4 % H ----Immature Grans (Abs) 0.0 27851277 0.0-0.1 x10E3/uL ----WBC 9.4 61229846 3.4-10.8 x10E3/uL ----Platelets 488 05316413 150-379 x10E3/uL H ----Eos 2 52203570 % ----RBC 5.27 66553962 3.77-5.28 x10E6/uL ----Monocytes 6 02279882 % LIPID PANEL ----LDL Cholesterol Calc 86 84457563 0-99 mg/dL ----VLDL Cholesterol Low 29 81287308 5-40 mg/dL ----Cholesterol, Total 156 77507554 100-199 mg/dL ----HDL Cholesterol 41 19491839 >39 mg/dL ----Triglycerides 144 06661984 0-149 mg/dL INR (IN HOUSE) ----Exp date [id number] ----INR 2.2 61273693 1.10 - 3.30 ----PREVIOUS INR 3.2 20150226 ----CURRENT COUMADIN DOSE 6mg every day 20150226 ----Lot # [id number] ROUTINE VENIPUNCTURE CMP ----Potassium, Serum 4.1 20150226 3.5-5.2 mmol/L ----Sodium, Serum 140 86470821 134-144 mmol/L ----BUN/Creatinine Ratio 20 92962605 8-20 ----eGFR If Africn Am 129 58265720 >59 mL/min/1.73 ----eGFR If NonAfricn Am 111 07587622 >59 mL/min/1.73 ----Creatinine, Serum 0.71 20150226 0.57-1.00 mg/dL ----BUN 14 20150226 6-20 mg/dL ----Glucose, Serum 111 22617946 65-99 mg/dL H ----AST (SGOT) 13 20150226 0-40 IU/L ----Globulin, Total 2.8 93161572 1.5-4.5 g/dL ----ALT (SGPT) 16 20150226 0-32 IU/L ----A/G Ratio 1.5 20150226 1.1-2.5 ----Bilirubin, Total 0.2 20150226 0.0-1.2 mg/dL ----Alkaline Phosphatase, S 81 19344234 39-117 IU/L ----Carbon Dioxide, Total 28 20150226 18-29 mmol/L ----Calcium, Serum 9.4 26151215 8.7-10.2 mg/dL ----Protein, Total, Serum 6.9 99462646 6.0-8.5 g/dL ----Albumin, Serum 4.1 59753795 3.5-5.5 g/dL ----Chloride, Serum 100 66824393 97-108 mmol/L EKG, TRACING (IN-HOUSE) Summary Purpose eClinicalWorks Submission
--- OUTSIDE RECORDS SUMMARY | 2017-02-14 09:21 | XMS REPORT ---
Author GALO Ortega [facility] eClinicalWorks Address Unknown Phone Unavailable Care Team Providers Care College Admissions Counselor Name Role Phone GALO FREY CP Unavailable Allergies, Adverse Reactions, Alerts Substance [...] Condition Code Onset Dates Condition Status Assessment Sinusitis J32.9 Active Problem Chronic back pain M54.9 Active Problem Anemia D64.9 Active Assessment Tobacco dependence F17.200 Active Assessment Cough R05 Active Problem Obesity E66.9 Active Problem Hypertension I10 Active Problem Anxiety F41.9 Active Problem Atrial fibrillation I48.91 Active Problem GERD (gastroesophageal reflux disease) K21.9 Active Problem Environmental allergies Z91.09 Active Problem CAD (coronary artery disease) I25.10 Active Medications Medication Code System Code Instructions Start Date End Date Status Dosage Coumadin [facility] [address]-95 6 MG Orally Once a day April 26, 2013 take 1 tablet (6.5 mg) by oral route once daily Omeprazole [facility] [address]-35 40 mg April 26, 2013 2 Capsule by Oral route 1 time per day Furosemide [facility] 41000484878 40 TAKE 1 TABLET BY MOUTH DAILY Doxycycline Hyclate [facility] [address]-48 100 MG Orally every 12 hrs Jan 18, 2015 Jan 28, 2015 1 capsule Hydrocodone-Acetaminophen [facility] [address]-61 10-250 mg April 27, 2012 not defined Sotalol HCl [facility] [address]-43 160 MG Orally Twice a day not defined Tessalon Perles [facility] [address]-42 200 mg Orally Three times a day Jan 18, 2015 Jan 25, 2015 1 capsule as needed Loratadine [facility] 25469144640 10 TAKE 1 TABLET BY MOUTH EVERY DAY Singulair [facility] [address]-92 10 MG Orally Once a day 1 TABLET BY ORAL ROUTE 1 TIME PER DAY Zocor [facility] [address]-49 20 MG Once a day April 26, 2013 take 1 tablet (20 mg) by oral route once daily in the evening Trilipix [facility] [address]-71 135 MG Orally Once a day Nov 30, [address] [facility] 0 240 mg April 26, 2013 take 1 tablet by Oral route 1 time per day at bedtime Combivent Respimat [facility] [address]-82 20-100 mcg/actuation Apr 07, 2014 inhale 1 puff by inhalation route 4 times per day ; may take additional puffs as needed not to exceed 6 puffs in 24hrs Flonase [facility] [address]-78 50 MCG/ACT Nasally 2 times a day Jan 18, 2015 1 spray in each nostril Xanax [facility] [address]-22 1 MG Orally 3 times a day Dec 25, 2014 1 tablet Metoprolol Tartrate [facility] [address]-78 100 MG Orally Twice a day April 26, 2013 take 1 tablet by oral route 2 times per day Procedures Procedure Coding System Code Date Office Visit, Est Pt., Level 3 CPT-4 25968 Jan 18, 2015 MEASURE BLOOD OXYGEN LEVEL CPT-4 19062 Jan 18, 2015 Vital Signs Date/Time: Jan 18, 2015 Temperature 99.0 F Weight 374.7 lbs Height 70 in Oximetry 97 % Blood Pressure Diastolic 78 mmHg Blood Pressure Systolic 122 mmHg Cardiac Monitoring Heart Rate 75 bpm BMI 53.76 Index Results No Known Results Summary Purpose eClinicalWorks Submission
--- OUTSIDE RECORDS SUMMARY | 2017-02-14 09:22 | XMS REPORT ---
Author Author RAMSES ROCK [facility] eClinicalWorks Address Unknown Phone Unavailable Care Team Providers Care Polymerization Helper Name Role Phone RAMSES ROCK CP Unavailable Allergies No Known Allergies Problems Problem Type Condition Code Onset Dates Condition Status Problem Chronic back pain M54.9 Active Assessment CAD (coronary artery disease) I25.10 Active Problem Obesity E66.9 Active Problem Hypertension I10 Active Problem Anxiety F41.9 Active Problem Atrial fibrillation I48.91 Active Problem GERD (gastroesophageal reflux disease) K21.9 Active Problem Environmental allergies Z91.09 Active Problem CAD (coronary artery disease) I25.10 Active Medications Medication Code System Code Instructions Start Date End Date Status Dosage Trilipix [facility] [address]-30 135 MG Orally Once a day Nov 30, 2014 1 capsule Results No Known Results Summary Purpose eClinicalWorks Submission
--- OUTSIDE RECORDS SUMMARY | 2017-02-14 09:22 | XMS REPORT ---
Author RAMSES Reis [facility] eClinicalWorks Address Unknown Phone Unavailable Care Team Providers Care Pharmacy Innovation Assistant Name Role Phone RAMSES ROCK CP Unavailable [...] esophagitis presence not specified K21.9 Active Assessment Hypercholesterolemia E78.0 Active Problem Hypercholesterolemia E78.0 Active Assessment Atrial fibrillation I48.91 Active Assessment Mild intermittent asthma without complication J45.20 Active Problem Mild intermittent asthma without complication J45.20 Active Problem Anxiety F41.9 Active Problem Obesity E66.9 Active Problem Coronary artery disease, angina presence unspecified, unspecified vessel or lesion type, unspecified whether [place] or transplanted heart I25.10 Active Problem Edema, unspecified type R60.9 Active Assessment Environmental allergies Z91.09 Active Assessment Hypertension I10 Active Assessment Anemia D64.9 Active Assessment GERD (gastroesophageal reflux disease) K21.9 Active Assessment Dysuria R30.0 Active Problem Anemia D64.9 Active Assessment Obesity E66.9 Active Problem Chronic back pain M54.9 Active Assessment Anxiety F41.9 Active Problem GERD (gastroesophageal reflux disease) K21.9 Active Medications Medication Code System Code Instructions Start Date End Date Status Dosage Ativan [facility] [address]-30 1 MG Orally 4 times a day prn Nov 26, 2015 1 tablet at bedtime as needed Tylenol [facility] [address]-97 325 MG Orally every 6 hrs July 14, 2015 2 tablets as needed Xarelto [facility] [address]-94 20 MG Orally Once a day 1 tablet with food Loratadine [facility] [address]-98 10 MG Orally Once a day 1 tablet Furosemide [facility] 86802311371 40 TAKE 1 TABLET BY MOUTH DAILY Zocor [facility] 36738658387 20 MG take 1 tablet (20 mg) by oral route once daily in the evening Topamax [facility] 90774117603 50 MG Orally Twice a day 1 tablet Flonase Allergy Relief [facility] [address]-81 50 MCG/ACT Nasally Once a day July 14, 2015 1 spray in each nostril Zofran [facility] [address]-12 4 MG Orally 3 times a day September 13, 2015 1 tablets Combivent Respimat [facility] 98624273898 20-100 MCG/ACT INHALE 1 PUFF FOUR TIMES DAILY DIRECTED Singulair [facility] 92784685398 10 MG Orally Once a day 1 TABLET BY ORAL ROUTE 1 TIME PER DAY Lopid [facility] [address]-26 600 MG Orally Twice a day August 20, 2015 1 tablet Metoprolol Tartrate [facility] [address]-53 100 MG Orally Twice a day 1 tablet Verapamil HCl CR [facility] [address]-07 240 MG Orally Once a day 1 tablet Prilosec [facility] [address]-84 40 MG Orally Twice a day 1 capsule Sotalol HCl [facility] [address]-98 160 MG Orally every 12 hrs 1 tablet Hydrocodone-Acetaminophen [facility] [address]-90 10-325 MG Orally every 6 hrs 1 tablet as needed Procedures Procedure Coding System Code Date [facility] C[facility]-4 NOBLL Nov 26, 2015 Office Visit, Est Pt., Level 4 CPT-4 13872 Nov 26, 2015 URINALYSIS, AUTO, W/O SCOPE CPT-4 51611 Nov 26, 2015 VENIPUNCT, ROUTINE* CPT-4 00953 Nov 26, 2015 Vital Signs Date/Time: Nov 26, 2015 Cardiac Monitoring Heart Rate 72 bpm Weight 339 lbs Height 70 in BMI 48.64 Index Blood Pressure Diastolic 90 mmHg Blood Pressure Systolic 140 mmHg Results Name Result Date Reference Range Unit Abnormality Flag TSH W/ FREE T4 ----TSH 0.030 [id number] 0.450-4.500 uIU/mL L ----T4,Free(Direct) 1.28 22061633 0.82-1.77 ng/dL CBC ----Basos 0 76370514 % ----MCV 65 39160643 79-97 fL L ----Hematocrit 33.9 05207601 34.0-46.6 % L ----Eos 2 82119350 % ----MCHC 29.2 62801519 31.5-35.7 g/dL L ----Monocytes 7 64888576 % ----MCH 19.0 91911478 26.6-33.0 pg L ----Lymphs 16 20151126 % ----Eos (Absolute) 0.2 71775697 0.0-0.4 x10E3/uL ----WBC 8.9 49418411 3.4-10.8 x10E3/uL ----Monocytes(Absolute) 0.6 18126647 0.1-0.9 x10E3/uL ----Lymphs (Absolute) 1.4 89157529 0.7-3.1 x10E3/uL ----Hemoglobin 9.9 35225708 11.1-15.9 g/dL L ----Neutrophils (Absolute) 6.7 16136225 1.4-7.0 x10E3/uL ----RBC 5.21 36176614 3.77-5.28 x10E6/uL ----Immature Grans (Abs) 0.0 23317196 0.0-0.1 x10E3/uL ----Immature Granulocytes 0 99182261 % ----Neutrophils 75 10685777 % ----Baso (Absolute) 0.0 72778917 0.0-0.2 x10E3/uL ----RDW 18.8 30648931 12.3-15.4 % H ----Platelets 417 98535534 150-379 x10E3/uL H UA LONG DIP (IN HOUSE) ----JUNE Negative [id number] ----NIT Negative [id number] ----Exp date [id number] ----Lot # [id number] ----SG 1.010 20151126 ----KET Negative 20151126 ----DIGNA Negative 20151126 ----GLU Negative 20151126 ----Odor None [id number] ----pH 5.0 20151126 ----BLO Trace-Lysed 20151126 ----URO 0.2 20151126 ----Protein Negative 20151126 ----Lot # [id number] ----Exp date [id number] ----Clarity Slightly Cloudy 20151126 ----Color Yellow 20151126 ROUTINE VENIPUNCTURE LIPID PANEL ----LDL Cholesterol Calc 81 62566741 0-99 mg/dL ----VLDL Cholesterol Low 20 36059195 5-40 mg/dL ----HDL Cholesterol 37 68058768 >39 mg/dL L ----Triglycerides 99 72192180 0-149 mg/dL ----Cholesterol, Total 138 97291864 100-199 mg/dL CMP ----Creatinine, Serum 0.64 46479743 0.57-1.00 mg/dL ----BUN 10 38086107 6-20 mg/dL ----eGFR If Africn Am 134 56876387 >59 mL/min/1.73 ----eGFR If NonAfricn Am 116 01370208 >59 mL/min/1.73 ----Sodium, Serum 139 91988882 134-144 mmol/L ----BUN/Creatinine Ratio 16 54867014 8-20 ----Chloride, Serum 101 85389462 97-108 mmol/L ----Potassium, Serum 4.9 35044762 3.5-5.2 mmol/L ----Carbon Dioxide, Total 21 29939100 18-29 mmol/L ----Protein, Total, Serum 6.8 08800862 6.0-8.5 g/dL ----Calcium, Serum 9.5 14239663 8.7-10.2 mg/dL ----Globulin, Total 2.4 81168284 1.5-4.5 g/dL ----Albumin, Serum 4.4 09163162 3.5-5.5 g/dL ----Bilirubin, Total 0.3 80753333 0.0-1.2 mg/dL ----Glucose, Serum 110 20151126 65-99 mg/dL H ----A/G Ratio 1.8 20151126 1.1-2.5 ----ALT (SGPT) 6 20151126 0-32 IU/L ----Alkaline Phosphatase, S 111 20151126 39-117 IU/L ----AST (SGOT) 10 20151126 0-40 IU/L Summary Purpose eClinicalWorks Submission
--- OUTSIDE RECORDS SUMMARY | 2017-02-14 09:22 | XMS REPORT ---
Author Author RAMSES ROCK [facility] eClinicalWorks Address Unknown Phone Unavailable Care Team Providers Care Mortar Mixer Name Role Phone RAMSES ROCK CP Unavailable [...] unspecified vessel or lesion type, unspecified whether [place] or transplanted heart I25.10 Active Problem Gastroesophageal reflux disease, esophagitis presence not specified K21.9 Active Problem Obesity E66.9 Active Problem Hypertension I10 Active Problem Edema, unspecified type R60.9 Active Problem Anxiety F41.9 Active Medications No Known Medications Vital Signs Date/Time: Oct 15, 2015 BMI 48.64 Index Weight 339 lbs Height 70 in Results No Known Results Summary Purpose eClinicalWorks Submission
--- OUTSIDE RECORDS SUMMARY | 2017-02-14 09:22 | XMS REPORT ---
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
--- OUTSIDE RECORDS SUMMARY | 2017-02-14 09:22 | XMS REPORT ---
Author Author RAMSES ROCK Organization [facility] Address [address] [place] [address] Care Team Providers Care Yeast Cake Cutter Name Role Phone ROCK RAMSES Unavailable PROBLEMS Type Condition ICD9-CM Code WFH60-MD Code Onset Dates Condition Status SNOMED Code Problem Atrial fibrillation I48.91 Active 81404175 Problem Hypertension I10 Active 39119981 Problem Environmental allergies Z91.09 Active 482249159 Problem Anemia D64.9 Active 888267417 Problem Chronic back pain M54.9 Active 963611026 Problem GERD (gastroesophageal reflux disease) K21.9 Active 451228457 Problem Gastroesophageal reflux disease, esophagitis presence not specified K21.9 Active 599569880 Problem Hypercholesterolemia E78.0 Active 63150358 Problem Anxiety F41.9 Active 60524479 Problem Obesity E66.9 Active 778172169 Problem Coronary artery disease, angina presence unspecified, unspecified vessel or lesion type, unspecified whether [place] or transplanted heart I25.10 Active 25944079 Problem Edema, unspecified type R60.9 Active 248364045 ALLERGIES Unknown Allergies SOCIAL HISTORY No smoking Hx information available PLAN OF CARE VITAL SIGNS MEDICATIONS Medication Instructions Dosage Frequency Start Date End Date Duration Status Hydrocodone-Acetaminophen 10-325 MG Orally every 6 hrs 1 tablet as needed 6h 28 Active RESULTS No Results PROCEDURES No Known procedures IMMUNIZATIONS No Known Immunizations
--- OUTSIDE RECORDS SUMMARY | 2017-02-14 09:22 | XMS REPORT ---
Author Author RAMSES ROCK [facility] eClinicalWorks Address Unknown Phone Unavailable Care Team Providers Care Relief Captain Name Role Phone RAMSES ROCK CP Unavailable [...]
--- OUTSIDE RECORDS SUMMARY | 2017-02-14 09:22 | XMS REPORT ---
Author Author RAMSES ROCK [facility] eClinicalWorks Address Unknown Phone Unavailable Care Team Providers Care Personal Lines Appraiser Name Role Phone RAMSES ROCK CP Unavailable [...]
--- OUTSIDE RECORDS SUMMARY | 2017-02-14 09:22 | XMS REPORT ---
Author Author RAMSES ROCK Organization [facility] Address [address] [place] [address] Care Team Providers Care Clinical Allergist Name Role Phone JAMES ROCKNETTE Unavailable PROBLEMS Type Condition ICD9-CM Code PAU54-QL Code Onset Dates Condition Status SNOMED Code Problem Edema, unspecified type R60.9 Active 231913265 Problem Hypercholesterolemia E78.0 Active 87560593 Problem Coronary artery disease, angina presence unspecified, unspecified vessel or lesion type, unspecified whether [place] or transplanted heart I25.10 Active 38323327 Problem Reactive depression F32.9 Active 90665296 Problem Hyperlipidemia, unspecified hyperlipidemia type E78.5 Active 33586402 Problem Mild intermittent asthma without complication J45.20 Active 910195598 Problem Gastroesophageal reflux disease, esophagitis presence not specified K21.9 Active 948528572 Problem Cluster headache, not intractable, unspecified chronicity pattern G44.009 Active 669495660 Problem Other constipation K59.09 Active 181972688 Problem Anxiety F41.9 Active 29444101 Problem Hypertension I10 Active 97223669 Problem Anemia D64.9 Active 419686976 Problem Environmental allergies Z91.09 Active 926041147 Problem Atrial fibrillation I48.91 Active 06214288 Problem Chronic back pain M54.9 Active 265050479 Problem Obesity E66.9 Active 712082564 Problem GERD (gastroesophageal reflux disease) K21.9 Active 755770908 ALLERGIES No Information SOCIAL HISTORY Never Assessed PLAN OF CARE VITAL SIGNS MEDICATIONS Medication Instructions Dosage Frequency Start Date End Date Duration Status Hydrocodone-Acetaminophen 10-325 MG Orally every 6 hrs 1 tablet as needed 6h June, Active Xanax 1 MG Orally 3 times a day Rx to be filled on 02/25/16 1 tablet 28 days Active RESULTS No Results PROCEDURES [...]
--- OUTSIDE RECORDS SUMMARY | 2017-02-14 09:22 | XMS REPORT ---
Author Author RAMSES ROCK [facility] eClinicalWorks Address Unknown Phone Unavailable Care Team Providers Care Partner Marketing Manager Name Role Phone RAMSES ROCK CP [...] unspecified vessel or lesion type, unspecified whether [place] or transplanted heart I25.10 Active Problem Edema, unspecified type R60.9 Active Problem Anemia D64.9 Active Problem Chronic back pain M54.9 Active Problem GERD (gastroesophageal reflux disease) K21.9 Active Medications Medication Code System Code Instructions Start Date End Date Status Dosage Hydrocodone-Acetaminophen [facility] [address]-87 10-325 MG Orally every 6 hrs 1 tablet as needed Results No Known Results Summary Purpose eClinicalWorks Submission
--- OUTSIDE RECORDS SUMMARY | 2017-02-14 09:23 | XMS REPORT ---
Author Author RAMSES ROCK [facility] eClinicalWorks Address Unknown Phone Unavailable Care Team Providers Care Factory Expert Name Role Phone RAMSES ROCK CP Unavailable [...] M54.9 Active Problem Anemia D64.9 Active Assessment Chronic back pain M54.9 Active Problem Obesity E66.9 Active Problem Hypertension I10 Active Problem Anxiety F41.9 Active Problem Atrial fibrillation I48.91 Active Problem GERD (gastroesophageal reflux disease) K21.9 Active Problem Environmental allergies Z91.09 Active Problem CAD (coronary artery disease) I25.10 Active Medications Medication Code System Code Instructions Start Date End Date Status Dosage Metoprolol Tartrate [facility] [address]-17 100 MG Orally Twice a day April 26, 2013 take 1 tablet by oral route 2 times per day Sotalol HCl [facility] [address]-57 160 MG Orally Twice a day 1 tablet Zocor [facility] [address]-38 20 MG Once a day April 26, 2013 take 1 tablet (20 mg) by oral route once daily in the evening Loratadine [facility] 24044990820 10 TAKE 1 TABLET BY MOUTH EVERY DAY Hydrocodone-Acetaminophen [facility] [address]-36 10-325 MG Orally 4 times per day April 27, 2012 1 tablet as needed verapamil [place] 0 240 mg April 26, 2013 take 1 tablet by Oral route 1 time per day at bedtime Flonase [facility] [address]-24 50 MCG/ACT Nasally 2 times a day Jan 18, 2015 1 spray in each nostril Furosemide [facility] 23795997367 40 TAKE 1 TABLET BY MOUTH DAILY Omeprazole [facility] [address]-94 40 MG April 26, 2013 2 Capsule by Oral route 1 time per day Coumadin [facility] [address]-10 6 MG Once a day take 1 tablet (7.5 mg ) by oral route once daily Xanax [facility] [address]-12 1 MG Orally 3 times a day Dec 25, 2014 1 tablet Azithromycin [facility] [address]-12 250 MG Orally Once a day Feb 04, 2015 Feb 09, 2015 2 tablets on the first day, then 1 tablet daily for 4 days Trilipix [facility] [address]-14 135 MG Orally Once a day Nov 30, 2014 1 capsule Singulair [facility] [address]-57 10 MG Orally Once a day 1 TABLET BY ORAL ROUTE 1 TIME PER DAY Combivent Respimat [facility] [address]-13 20-100 mcg/actuation Apr 07, 2014 inhale 1 puff by inhalation route 4 times per day ; may take additional puffs as needed not to exceed 6 puffs in 24hrs Procedures Procedure Coding System Code Date DEPO MEDROL 40 MG/ML CPT-4 J1030 Feb 04, 2015 THER/PROPH/DIAG INJ, SC/IM CPT-4 54520 Feb 04, 2015 Office Visit, Est Pt., Level 4 CPT-4 26420 Feb 04, 2015 Vital Signs Date/Time: Feb 04, 2015 Temperature 96.2 F Weight 376.4 lbs Height 70 in BMI 54.00 Index Blood Pressure Diastolic 82 mmHg Blood Pressure Systolic 130 mmHg Cardiac Monitoring Heart Rate 78 bpm Results No Known Results Summary Purpose eClinicalWorks Submission
--- OUTSIDE RECORDS SUMMARY | 2017-02-14 09:23 | XMS REPORT | Continuity of Care Document ---
Author Author Count Includes [facility] Address Unknown Phone Unavailable Allergies Active Description Code Type Severity Reaction Onset Reported/Identified Relationship to Patient Clinical Status Yes morphine Drug Allergy N/A N/A 08/09/2010 Yes Reglan Drug Allergy N/A N/A 08/09/2010 Yes Ultram Drug Allergy N/A N/A 08/09/2010 Yes morphine Drug Allergy 08/09/2010 Yes Reglan Drug Allergy 08/09/2010 Yes Ultram Drug Allergy 08/09/2010 Yes Amoxicillin OA N/A N/A 08/30/2010 Yes Amoxicillin OA 08/30/2010 Medications There is no data. Problems Date Dx Coded Attending Type Code Diagnosis Diagnosed By 08/09/2010 305.1 TOBACCO ABUSE 08/09/2010 381.81 EUSTACHIAN TUBE DYSFUNCTION 08/09/2010 461.9 SINUSITIS ACUTE 08/09/2010 931 FOREIGN BODY IN EAR 08/09/2010 305.1 TOBACCO ABUSE 08/09/2010 381.81 EUSTACHIAN TUBE DYSFUNCTION 08/09/2010 461.9 SINUSITIS ACUTE 08/09/2010 931 FOREIGN BODY IN EAR 08/09/2010 305.1 TOBACCO ABUSE 08/09/2010 381.81 EUSTACHIAN TUBE DYSFUNCTION 08/09/2010 461.9 SINUSITIS ACUTE 08/09/2010 931 FOREIGN BODY IN EAR 08/09/2010 305.1 TOBACCO ABUSE 08/09/2010 381.81 EUSTACHIAN TUBE DYSFUNCTION 08/09/2010 461.9 SINUSITIS ACUTE 08/09/2010 931 FOREIGN BODY IN EAR 08/09/2010 305.1 TOBACCO ABUSE 08/09/2010 381.81 EUSTACHIAN TUBE DYSFUNCTION 08/09/2010 461.9 SINUSITIS ACUTE 08/09/2010 931 FOREIGN BODY IN EAR 08/09/2010 JOSE JHAVERI APRN 305.1 TOBACCO ABUSE 08/09/2010 JOSE JHAVERI APRN 381.81 EUSTACHIAN TUBE DYSFUNCTION 08/09/2010 JOSE JHAVERI APRN 461.9 SINUSITIS ACUTE 08/09/2010 JOSE JHAVERI APRN 931 FOREIGN BODY IN EAR 08/09/2010 JOSE JHAVERI APRN 305.1 TOBACCO ABUSE 08/09/2010 JOSE JHAVERI APRN 381.81 EUSTACHIAN TUBE DYSFUNCTION 08/09/2010 JOSE JHAVERI APRN 461.9 SINUSITIS ACUTE 08/09/2010 JOSE JHAVERI APRN 931 FOREIGN BODY IN EAR 08/09/2010 SHAMAR SWANSON APRNSON L 305.1 TOBACCO ABUSE 08/09/2010 SHIMAON SHAMAR PORTERSON L 381.81 EUSTACHIAN TUBE DYSFUNCTION 08/09/2010 OLU SWANSON APRN L 461.9 SINUSITIS ACUTE 08/09/2010 SHAMAR SWANSON APRNSON L 931 FOREIGN BODY IN EAR 08/30/2010 625.9 UNSPECIFIED SYMPTOM ASSOCIATED WITH FEMALE GENITAL ORGANS 08/30/2010 625.9 UNSPECIFIED SYMPTOM ASSOCIATED WITH FEMALE GENITAL ORGANS 08/30/2010 625.9 UNSPECIFIED SYMPTOM ASSOCIATED WITH FEMALE GENITAL ORGANS 08/30/2010 625.9 UNSPECIFIED SYMPTOM ASSOCIATED WITH FEMALE GENITAL ORGANS 08/30/2010 625.9 UNSPECIFIED SYMPTOM ASSOCIATED WITH FEMALE GENITAL ORGANS 08/30/2010 JOSE JHAVERI APRN 625.9 UNSPECIFIED SYMPTOM ASSOCIATED WITH FEMALE GENITAL ORGANS 08/30/2010 JOSE JHAVERI APRN 625.9 UNSPECIFIED SYMPTOM ASSOCIATED WITH FEMALE GENITAL ORGANS 08/30/2010 SHAMAR SWANSON APRNSON L 625.9 UNSPECIFIED SYMPTOM ASSOCIATED WITH FEMALE GENITAL ORGANS 04/27/2012 462 sore throat 04/27/2012 462 sore throat 04/27/2012 462 sore throat 04/27/2012 462 sore throat 04/27/2012 462 sore throat 04/27/2012 JOSE JHAVERI APRN 462 sore throat 04/27/2012 JOSE JHAVERI APRN 462 sore throat 04/27/2012 EATSHAMAR PRAKASH APRNSON L 462 sore throat 05/04/2012 729.5 pain in the right foot 05/04/2012 V70.0 NORMAL ROUTINE HISTORY AND PHYSICAL 05/04/2012 V74.1 SCREENING EXAMINATION FOR PULMONARY TUBERCULOSIS 05/04/2012 729.5 pain in the right foot 05/04/2012 V70.0 NORMAL ROUTINE HISTORY AND PHYSICAL 05/04/2012 V74.1 SCREENING EXAMINATION FOR PULMONARY TUBERCULOSIS 05/04/2012 729.5 pain in the right foot 05/04/2012 V70.0 NORMAL ROUTINE HISTORY AND PHYSICAL 05/04/2012 V74.1 SCREENING EXAMINATION FOR PULMONARY TUBERCULOSIS 05/04/2012 729.5 pain in the right foot 05/04/2012 V70.0 NORMAL ROUTINE HISTORY AND PHYSICAL 05/04/2012 V74.1 SCREENING EXAMINATION FOR PULMONARY TUBERCULOSIS 05/04/2012 JOSE JHAVERI APRN 729.5 pain in the right foot 05/04/2012 JOSE JHAVERI APRN V70.0 NORMAL ROUTINE HISTORY AND PHYSICAL 05/04/2012 JOSE JHAVERI APRN V74.1 SCREENING EXAMINATION FOR PULMONARY TUBERCULOSIS 05/04/2012 JOSE JHAVERI APRN 729.5 pain in the right foot 05/04/2012 JOSE JHAVERI APRN V70.0 NORMAL ROUTINE HISTORY AND PHYSICAL 05/04/2012 JOSE JHAVERI APRN V74.1 SCREENING EXAMINATION FOR PULMONARY TUBERCULOSIS 05/04/2012 OLU SWANSON APRN L 729.5 pain in the right foot 05/04/2012 OLU SWANSON APRN L V70.0 NORMAL ROUTINE HISTORY AND PHYSICAL 05/04/2012 SHAMAR SWANSON APRNSON L V74.1 SCREENING EXAMINATION FOR PULMONARY TUBERCULOSIS 06/11/2012 477.9 ALLERGIC RHINITIS 06/11/2012 JOSE JHAVERI APRN 477.9 ALLERGIC RHINITIS 06/11/2012 JOSE JHAVERI APRN 477.9 ALLERGIC RHINITIS 06/11/2012 OLU SWANSON APRN L 477.9 ALLERGIC RHINITIS 03/27/2013 JOSE JHAVERI APRN 382.00 OTITIS MEDIA ACUTE SUPPURATIVE LEFT EAR 03/27/2013 JOSE JHAVERI APRN 474.11 Tonsils Enlargement Asymmetrically Left > Right 03/27/2013 JOSE JHAVERI APRN 382.00 OTITIS MEDIA ACUTE SUPPURATIVE LEFT EAR 03/27/2013 JOSE JHAVERI APRN 474.11 Tonsils Enlargement Asymmetrically Left > Right 03/27/2013 SKY BANSALOLU Maier 382.00 OTITIS MEDIA ACUTE SUPPURATIVE LEFT EAR 03/27/2013 SHIMAOLU PRAKASH APRN 474.11 Tonsils Enlargement Asymmetrically Left > Right 04/26/2013 JOSE JHAVERI APRN 465.9 UPPER RESPIRATORY INFECTION 04/26/2013 SKY BANSALOLU Maier 465.9 UPPER RESPIRATORY INFECTION 04/07/2014 SKY OLU PORTER 466.19 BRONCHIOLITIS 04/07/2014 SKY BANSALOLU Maier V65.42 TOBACCO COUNSELING Procedures [place] [address] INFLUENZA A & B (IN-HOUSE) 04/27/2012 64640 STREP A (IN-HOUSE) 04/27/2012 90179 TB TEST INTRADERMAL 05/04/2012 J1885 TORADOL INJ 05/08/2012 73142 UA LONG DIP 05/08/2012 61192 TB TEST INTRADERMAL 05/08/2012 81403 MONO TEST (IN-HOUSE) 06/11/2012 29950 OXIMETRY 04/26/2013 Results There is no data. Encounters ACCT No. Visit Date/Time Discharge Status Pt. Type Provider Facility Loc./Unit Complaint [id number] 04/07/2014 09:33:00 04/07/2014 23:59:59 CLS Outpatient OLU SWANSON APRN [id number] 04/26/2013 10:17:00 04/26/2013 23:59:59 CLS Outpatient JOSE JHAVERI APRN [id number] 03/27/2013 14:40:00 03/27/2013 23:59:59 CLS Outpatient JOSE JHAVERI APRN [id number] 05/04/2012 10:35:00 05/04/2012 23:59:59 CLS Outpatient [id number] 05/04/2012 10:35:00 05/04/2012 23:59:59 CLS Outpatient [id number] 04/27/2012 12:18:00 04/27/2012 23:59:59 CLS Outpatient [id number] 04/27/2012 12:18:00 04/27/2012 23:59:59 CLS Outpatient [id number] 06/11/2012 14:08:00 Document Registration
--- OUTSIDE RECORDS SUMMARY | 2017-02-14 09:23 | XMS REPORT ---
Author Author RAMSES ROCK Organization [facility] Address [address] [place] [address] Care Team Providers Care Tallow Maker Name Role Phone JAMES ROCKNETTE Unavailable PROBLEMS Type Condition ICD9-CM Code [id number] Code Onset Dates Condition Status SNOMED Code Problem Edema, unspecified type R60.9 Active 731144746 Problem Hypercholesterolemia E78.0 Active 75565209 Problem Coronary artery disease, angina presence unspecified, unspecified vessel or lesion type, unspecified whether [place] or transplanted heart I25.10 Active 71704550 Problem Reactive depression F32.9 Active 82681235 Problem Hyperlipidemia, unspecified hyperlipidemia type E78.5 Active 65590832 Problem Mild intermittent asthma without complication J45.20 Active 753799558 Problem Gastroesophageal reflux disease, esophagitis presence not specified K21.9 Active 475894844 Problem Cluster headache, not intractable, unspecified chronicity pattern G44.009 Active 450156685 Problem Other constipation K59.09 Active 162188973 Problem Anxiety F41.9 Active 15714520 Problem Hypertension I10 Active 44124149 Problem Anemia D64.9 Active 111844201 Problem Environmental allergies Z91.09 Active 827984315 Problem Atrial fibrillation I48.91 Active 37704844 Problem Chronic back pain M54.9 Active 290325195 Problem Obesity E66.9 Active 435754131 Problem GERD (gastroesophageal reflux disease) K21.9 Active 442299482 ALLERGIES No Information SOCIAL HISTORY Never Assessed PLAN OF CARE VITAL SIGNS MEDICATIONS Medication Instructions Dosage Frequency Start Date End Date Duration Status Lovenox 40 MG/0.4ML Subcutaneous Once a day 0.4 ml 24h June, 7 days Active RESULTS No Results PROCEDURES No [...]
[2017-02-14] MEDS ORDERED: CLINDAMYCIN INJECTION 900 MG in NS (IVPB) 50 ML IV ONE (09:30)
[2017-02-14] MEDS ORDERED: GENTAMICIN INJ (FOR COMPOUND) 120 MG in NS (IVPB) 100 ML IV ONE (09:30)
[2017-02-14] MEDS ORDERED: LACTATED RINGERS 1,000 ML IV PRN ×2 (09:33)
[2017-02-14] MEDS ORDERED: CITRIC ACID/SOB CIT (BICITRA) 30 ML UDC PO ONE (09:45)
[2017-02-14] MEDS ORDERED: FAMOTIDINE 20MG/2ML IV (PEPCID) IV ONE (09:45)
[2017-02-14 10:00] VITALS: BP 140/65
[2017-02-14 10:24] LABS: BASOPHILS % (AUTO) 0 % (0-10); EOSINOPHILS # (AUTO) 0.1 10^3/uL (0.0-0.3); EOSINOPHILS % (AUTO) 1 % (0-10); HEMATOCRIT 35 % (35-52); HEMOGLOBIN 11.1 G/DL (11.5-16.0); LYMPHOCYTES # (AUTO) 1.5 X 10^3 (1.0-4.0); LYMPHOCYTES % (AUTO) 13 % (12-44); MEAN CORPUSCULAR HEMOGLOBIN 26 PG (25-34); MEAN CORPUSCULAR HGB CONC 32 G/DL (32-36); MEAN CORPUSCULAR VOLUME 82 FL (80-99); MEAN PLATELET VOLUME 9.8 FL (7.4-10.4); MONOCYTES # (AUTO) 0.6 X 10^3 (0.0-1.0); MONOCYTES % (AUTO) 5 % (0-12); NEUTROPHILS # (AUTO) 9.2 X 10^3 (1.8-7.8); NEUTROPHILS % (AUTO) 81 % (42-75); PLATELET COUNT 214 10^3/uL (130-400); RED BLOOD COUNT 4.27 10^6/uL (4.35-5.85); RED CELL DISTRIBUTION WIDTH 16.4 % (10.0-14.5); WHITE BLOOD COUNT 11.4 10^3/uL (4.3-11.0)
[2017-02-14] MEDS ORDERED: INFLUENZA TRIvalent 2017-2018 0.5 ML/45 MCG SYR IM ONE (10:45)
[2017-02-14] MEDS ORDERED: fentaNYL INJECTION 100 MCG/2 ML AMP ONE (11:45)
[2017-02-14] MEDS ORDERED: KETAMINE HCL 100 MG/ML 5 ML VIAL ONE (11:45)
--- NOTE | 2017-02-14 12:07 | History & Physical ---
History and Physical Date Seen by Provider: Feb 14, 2017 Time Seen by Provider: 12:02 this patient is a 36-year-old 2 white female currently at 37 2/ 7 weeks' gestation. She was seen yesterday in clinic and found to have elevated blood pressure and a urine protein creatinine ratio of 0.45. She was instructed to return today for her repeat . Her is complicated by her history of A. fib for which she is on IM Lovenox 40 mg every morning her last dose was yesterday making appropriate to proceed with a C- section today. She also takes several cardiac medications in addition to Lexapro and vitamins and BuSpar. GBS culture was negative. patient denies rupture membranes or bleeding. Allergies are to Reglan amoxicillin morphine sulfate Keflex ultrasound penicillin and Cipro Medications are Lovenox metoprolol Lexapro sotalol verapamil vitamins Tylenol BuSpar past medical history, past surgical history, obstetric history, family history, and social histories are per the antepartum record HEENT exam is normal Neck is supple no lymphadenopathy no thyromegaly Abdomen is gravid soft morbidly obese nontender extremities show clubbing or cyanosis. There is fairly markedly pretibial pitting edema. There is no Homans sign. pelvic exam is deferred Monitor shows a normal heart rate pattern with no contractions Laboratory Tests Test 02/14/17 10:03 Range/Units White Blood Count 11.4 H 4.3-11.0 10^3/uL Red Blood Count 4.27 L 4.35-5.85 10^6/uL Hemoglobin 11.1 L 11.5-16.0 G/DL Hematocrit 35 35-52 % Mean Corpuscular Volume 82 80-99 FL Mean Corpuscular Hemoglobin 26 25-34 PG Mean Corpuscular Hemoglobin Concent 32 32-36 G/DL Red Cell Distribution Width 16.4 H 10.0-14.5 % Platelet Count 214 130-400 10^3/uL Mean Platelet Volume 9.8 7.4-10.4 FL Neutrophils (%) (Auto) 81 H 42-75 % Lymphocytes (%) (Auto) 13 12-44 % Monocytes (%) (Auto) 5 0-12 % Eosinophils (%) (Auto) 1 0-10 % Basophils (%) (Auto) 0 0-10 % Neutrophils # (Auto) 9.2 H 1.8-7.8 X 10^3 Lymphocytes # (Auto) 1.5 1.0-4.0 X 10^3 Monocytes # (Auto) 0.6 0.0-1.0 X 10^3 Eosinophils # (Auto) 0.1 0.0-0.3 10^3/uL Basophils # (Auto) 0.0 0.0-0.1 10^3/uL Urine protein creatinine ratio thank for my clinic yesterday had a value of 0.45 Assessment and plan 37 2/7 weeks' gestation the patient on Lovenox for A. fib that is off her Lovenox 24 hours she also has pre-eclampsia previous C-sections 2 morbid obesity and anxiety. She presents now for repeat delivery. She is aware of her increased risk due to her medications and to her morbid obesity. She accepts those risks and is ready to proceed term at 37 2/7 weeks' gestation with preeclampsia and previous C- section Allergies and Home Medications Allergies Coded Allergies: Penicillins (Verified Allergy, Unknown, HIVES, 02/13/17) amoxicillin (Verified Allergy, Unknown, HIVES, 02/13/17) cephalexin (Verified Allergy, Unknown, tachycardia, 02/13/17) ciprofloxacin (Verified Allergy, Unknown, ANAPHYLAXIS, 02/13/17) metoclopramide (Verified Allergy, Unknown, makes me pyscho", 02/13/17) morphine (Verified Allergy, Unknown, HIVES, 02/13/17) tramadol (Verified Allergy, Unknown, bloody nose, dizziness, 02/13/17) Home Medications Enoxaparin Sodium 40 Mg/0.4 Ml Syringe, 40 MG SQ DAILY@1200, (Reported) Escitalopram Oxalate 20 Mg Tablet, 20 MG PO DAILY, (Reported) Ferrous Sulfate 325 Mg Tablet, 325 MG PO DAILY@1600, (Reported) Hydroxyzine HCl 25 Mg Tablet, 25 MG PO Q8H PRN for ANXIETY, (Reported) Metoprolol Tartrate 100 Mg Tablet, 100 MG PO BID, (Reported) Sotalol HCl 160 Mg Tablet, 160 MG PO BID, (Reported) Verapamil HCl 240 Mg Cap24h.pel, 240 MG PO DAILY@1600, (Reported) Vit B Cmplx 3/FA/Vit C/Biotin 1 Each Tablet, 1 EACH PO DAILY, (Reported) Clinical Quality Measures DVT/VTE Risk/Contraindication: Risk Factor Score Per Nursin RFS Level Per Nursing on Admit: 3=High ARGELIA CLARKE MD Feb 14, 2017 12:07 pm
[2017-02-14] MEDS ORDERED: NS IV 1000 ML 0 ML ONE (12:11)
[2017-02-14] MEDS ORDERED: NS (IVPB) 100 ML ONE (12:13)
[2017-02-14] MEDS ORDERED: PROMETHAZINE INJ 25 MG/ML (PHENERGAN) AMP IM PRN (12:15)
[2017-02-14] MEDS ORDERED: ONDANSETRON 4 MG/2 ML (SDV) Z0FRAN IVP PRN (12:15)
[2017-02-14] MEDS ORDERED: KETOROLAC 30 MG/ML VIAL IVP SCH (12:15)
[2017-02-14] MEDS ORDERED: MEPERIDINE (DEMEROL) INJ 100 MG/ML IM PRN (12:15)
[2017-02-14] MEDS ORDERED: D5 LR IV SOLUTION 1,000 ML IV ONE (12:15)
[2017-02-14] MEDS ORDERED: TETANUS,DIPTH,PERTUSS P/F (BOOSTRIX) 0.5 ML VIAL IM ONE (12:15)
[2017-02-14] MEDS ORDERED: MEASLES,MUMPS,RUBELLA 1 EA INJ SC ONE (12:15)
[2017-02-14] MEDS ORDERED: GENTAMICIN INJ (FOR COMPOUND) 120 MG in NS (IVPB) 100 ML IV NR (12:20)
[2017-02-14] MEDS ORDERED: HYDROXYZINE HCL 25 MG PO PRN (12:45)
[2017-02-14] MEDS ORDERED: PATIENT MAY USE OWN MEDS, ALL MC SCH (13:00)
[2017-02-14] MEDS ORDERED: OXYTOCIN/NORMAL SALINE 1,000 ML IV ONE (13:22)
[2017-02-14] MEDS ORDERED: GENTAMICIN 40 MG/ML 2 ML INJ SDV ONE (13:22)
[2017-02-14] MEDS ORDERED: ONDANSETRON 4 MG/2 ML (SDV) Z0FRAN ONE (13:22)
[2017-02-14] MEDS: OXYTOCIN/NORMAL SALINE 500 ML IV SCH (15:15)
[2017-02-14 15:20] VITALS: BP 156/81
[2017-02-14 16:09] VITALS: BP 139/78
[2017-02-14] MEDS: FERROUS SULF 325 MG (IRON) TAB PO SCH (16:12)
[2017-02-14] MEDS: IBUPROFEN 800 MG (MOTRIN) TAB PO SCH ×2 (16:19→22:19)
[2017-02-14] MEDS: oxyCODONE/APAP 10/325MG (PERCOCET 10) TABLET PO PRN ×2 (18:33→22:19)
[2017-02-14] MEDS: Metoprolol Tartrate 100 MG PO SCH (19:51)
[2017-02-14 20:00] VITALS: BP 158/91
[2017-02-14] MEDS: DOCUSATE SODIUM 100 MG (COLACE) CAP PO SCH (22:19)
--- NOTE | 2017-02-14 23:31 | OPERATIVE REPORT ---
DATE OF SERVICE: 02/14/2017 PREOPERATIVE DIAGNOSES: A 37 and 2/7 weeks' gestation with preeclampsia with previous C-sections x2 with a history of AFib, on Lovenox and morbid obesity, request for RRS. POSTOPERATIVE DIAGNOSES: A 37 and 2/7 weeks' gestation with preeclampsia with previous C-sections x2 with a history of AFib, on Lovenox and morbid obesity. OPERATIVE PROCEDURE: Repeat low transverse delivery and opportunistic risk reducing salpingectomies. OPERATIVE DESCRIPTION: With the patient in the supine position under satisfactory spinal anesthesia, she was prepped and draped in the usual fashion for abdominal surgery. Very large panniculus was elevated with Kerlix gauze attached to the attached to the patient's abdomen with towel clips. This gave excellent exposure to the lower abdomen. Patient had 2 Pfannenstiel incisions that were probably 5 to 7 inches above her pubic bone. A repeat Pfannenstiel incision was made approximately 1 inch above her pubic bone to allow better access to the pelvis in hope with better recovery than she had experienced with these more cephalad incision. The abdomen was entered in the usual manner. Bladder retractor placed into position and clean scalpel used to make a 4 cm hysterotomy incision transversally across the lower uterine segment. With the patient's morbid obesity instead of pushing aggressively on her abdomen to expel the baby, Armenta forceps were applied to facilitate the delivery of the fetus, which was delivered very easily with the forceps. The had spontaneous cry, moved all extremities, had excellent tone and reflexes. Apgars was 7, 7 and 9 at 1, 5 and 10 minutes. The cord blood pH was 7.28. The was bulb suctioned on delivery of the head and again on completion of delivery. The cord was doubly clamped and cut and the infant passed to Karlie Liang, the pediatric nurse in attendance for delivery. The placenta delivered spontaneously [facility] after obtaining the cord blood. The uterus was exteriorized, the interior wiped clean with wet laparotomy sponge. The placenta did appear normal, but it was sent to pathology for permanent section. The uterine incision was then closed with a running lock suture of 2-0 Vicryl. The uterus was then examined, found to appear normal. The patient had requested removal of her fallopian tubes to decrease her risk for ovarian cancer. This had been discussed fully and completely several times in the clinic and again prior to coming to the operating room. At this point, the right fallopian tube was grasped and elevated. The mesosalpinx was opened with cautery and then the base of the appendix was ligated with 2-0 chromic suture. The distal portion of the fallopian tube vascular section was sutured in the same manner between the fallopian tube and the ovary then the fallopian tube was resected and sent to pathology labeled appropriately. The same procedure was performed on the left with the same result. The uterus was now returned to the abdominal cavity. All blood clot and debris removed from the abdominal cavity. With sponge and needle counts correct and hemostasis assured, the anterior parietal peritoneum was closed with a running suture of 2-0 Vicryl. Rectus muscles were closed with that suture as well rectus fascia was closed with two sutures of 2-0 Vicryl. Subcutaneous tissue was closed with 2-0 Vicryl and the skin was stapled. Sponge and needle counts were correct on completion of the delivery and RRS. Estimated blood loss was around 600 mL. The patient was transferred to the recovery room in stable condition. The infant had been taken stable to the full term nursery under the care of nurse Liang. Job ID: [id number] DocumentID: [id number] Dictated Date: 02/14/2017 15:58:41 Electric Powerline Examiner Date: 02/14/2017 23:31:02 Dictated By: ARGELIA CLARKE MD
[2017-02-15] VITALS (9 sets, daily range): BP systolic 140–178; BP diastolic 74–98
[2017-02-15] MEDS: oxyCODONE/APAP 10/325MG (PERCOCET 10) TABLET PO PRN ×4 (01:58→18:09)
[2017-02-15] MEDS: IBUPROFEN 800 MG (MOTRIN) TAB PO SCH ×3 (06:11→19:59)
[2017-02-15] MEDS: Escitalopram Oxalate 20 MG PO SCH (08:00)
--- NOTE | 2017-02-15 08:10 | Progress Note-Standard ---
Standard Progress Note Progress Notes/Assess & Plan Date Seen by Provider: Feb 15, 2017 Time Seen by Provider: 08:09 Progress/Assessment & Plan patient is without complaints she is ambulating, voiding, tolerating by mouth, has good pain control. She denies chest pain, denies shortness of breath, denies headache, denies nausea vomiting. Vital Signs Date Time Temp Pulse Resp B/P (MAP) Pulse Ox O2 Delivery O2 Flow Rate FiO2 02/15/17 05:00 98.4 52 18 140/76 (97) 94 Room Air 02/15/17 01:00 54 18 152/74 (100) 97 Room Air 02/15/17 00:20 98.0 60 18 178/89 (118) 97 Room Air 02/14/17 20:00 98.1 57 18 158/91 (113) 96 Room Air 02/14/17 16:09 97.3 56 18 139/78 (98) 97 Room Air 02/14/17 15:20 97.6 55 16 156/81 (106) 98 Room Air 02/14/17 10:00 97.4 54 140/65 (90) Room Air 02/14/17 09:05 60 16 121/57 (78) Room Air I & O 02/15/17 07:00 Intake Total 4659 ml Output Total 2450 ml Balance 2209 ml vital signs is relatively stable her blood pressures have improved. Her urine output is adequate. The abdomen is benign. Extreme show clubbing cyanosis. There is no Homans sign. There is fairly notable pretibial pitting edema that is not unusual for this patient. Assessment and plan postoperative day number 1 status post repeat and bilateral salpingectomies. Patient is doing well and will have routine convalescence care ARGELIA CLARKE MD Feb 15, 2017 8:10 am
[2017-02-15] MEDS ORDERED: [UNRECOGNIZED DRUG - OTHER] PO SCH (09:00)
[2017-02-15] MEDS: Metoprolol Tartrate 100 MG PO SCH ×2 (09:00→20:00)
[2017-02-15] MEDS ORDERED: IBUPROFEN 800 MG (MOTRIN) TAB PO SCH (12:15)
[2017-02-15] MEDS: DOCUSATE SODIUM 100 MG (COLACE) CAP PO SCH ×2 (12:20→19:59)
[2017-02-15] MEDS: OXYTOCIN/NORMAL SALINE 500 ML IV SCH (13:41)
--- NOTE | 2017-02-15 13:44 | Anesthesia-Regional Post-Op ---
Regional Patient Condition Mental Status: Alert, Oriented x3 Circulation: Same as Pre-Op Headache: Absent Sensation: Full Recovery Motor Block: Absent Post Op Complications Complications None Follow Up Care/Instructions Patient Instructions None needed. Anesthesia/Patient Condition Patient is doing well, no complaints, stable vital signs, no apparent adverse anesthesia problems. No complications reported per nursing. D/C home per [facility] [place] Criteria: No ILDA AGUILA CRNA Feb 15, 2017 13:44
[2017-02-15] MEDS: FERROUS SULF 325 MG (IRON) TAB PO SCH (20:01)
[2017-02-16] MEDS: oxyCODONE/APAP 10/325MG (PERCOCET 10) TABLET PO PRN ×5 (00:17→21:00)
[2017-02-16 03:10] VITALS: BP 155/71
[2017-02-16] MEDS: IBUPROFEN 800 MG (MOTRIN) TAB PO SCH ×4 (03:10→21:00)
[2017-02-16] MEDS: Metoprolol Tartrate 100 MG PO SCH ×2 (07:30→19:00)
--- NOTE | 2017-02-16 08:24 | Progress Note-Standard ---
Standard Progress Note Progress Notes/Assess & Plan Date Seen by Provider: Feb 16, 2017 Time Seen by Provider: 08:23 Progress/Assessment & Plan patient is without complaints she is ambulating, voiding, tolerating by mouth, has good pain control. She denies chest pain, denies shortness of breath, denies headache, denies nausea vomiting. Vital Signs Date Time Temp Pulse Resp B/P (MAP) Pulse Ox O2 Delivery O2 Flow Rate FiO2 02/15/17 05:00 98.4 52 18 140/76 (97) 94 Room Air 02/15/17 01:00 54 18 152/74 (100) 97 Room Air 02/15/17 00:20 98.0 60 18 178/89 (118) 97 Room Air 02/14/17 20:00 98.1 57 18 158/91 (113) 96 Room Air 02/14/17 16:09 97.3 56 18 139/78 (98) 97 Room Air 02/14/17 15:20 97.6 55 16 156/81 (106) 98 Room Air 02/14/17 10:00 97.4 54 140/65 (90) Room Air 02/14/17 09:05 60 16 121/57 (78) Room Air I & O 02/15/17 07:00 Intake Total 4659 ml Output Total 2450 ml Balance 2209 ml vital signs is relatively stable her blood pressures have improved. Her urine output is adequate. The abdomen is benign. Extreme show clubbing cyanosis. There is no Homans sign. There is fairly notable pretibial pitting edema that is not unusual for this patient. Assessment and plan postoperative day number 1 status post repeat and bilateral salpingectomies. Patient is doing well and will have routine convalescence care February 16, 2017 Patient is without complaint. She is ambulating, voiding, tolerating by mouth, has good pain control. Patient denies chest pain, denies shortness of breath, denies nausea vomiting, and denies headache. Vital Signs Date Time Temp Pulse Resp B/P (MAP) Pulse Ox O2 Delivery O2 Flow Rate FiO2 02/16/17 03:10 98.2 68 16 155/71 (99) 97 Room Air 02/15/17 20:30 64 16 149/76 (100) Room Air 02/15/17 20:00 97.8 63 16 173/98 (123) 97 Room Air 02/15/17 18:39 97.3 02/15/17 16:00 97.6 54 16 148/74 (98) 98 Room Air 02/15/17 12:00 97.3 56 18 143/80 (101) 96 Room Air 02/15/17 10:45 97.3 56 18 143/80 (101) 96 Room Air I & O 02/16/17 07:00 Intake Total 3200 ml Output Total 2550 ml Balance 650 ml blood pressures are somewhat labile but acceptable. The abdomen is benign. Incision is clean dry and intact. Extreme show no clubbing cyanosis. There is no Homans sign. There is fairly markedly pretibial pitting edema that is common for this patient ARGELIA CLARKE MD Feb 16, 2017 8:24 am
[2017-02-16 08:51] VITALS: BP 156/96
[2017-02-16] MEDS: DOCUSATE SODIUM 100 MG (COLACE) CAP PO SCH ×2 (08:51→21:00)
[2017-02-16] MEDS: Escitalopram Oxalate 20 MG PO SCH (11:20)
[2017-02-16 12:00] VITALS: BP 156/96
[2017-02-16] MEDS: FERROUS SULF 325 MG (IRON) TAB PO SCH (15:37)
[2017-02-16 16:00] VITALS: BP 156/96
[2017-02-16 21:00] VITALS: BP 144/71
[2017-02-17 02:10] VITALS: BP 149/76
[2017-02-17] MEDS: oxyCODONE/APAP 10/325MG (PERCOCET 10) TABLET PO PRN ×4 (02:15→21:43)
[2017-02-17] MEDS: IBUPROFEN 800 MG (MOTRIN) TAB PO SCH ×4 (02:16→22:32)
[2017-02-17 08:30] VITALS: BP 120/57
--- NOTE | 2017-02-17 09:34 | Progress Note-Standard ---
Standard Progress Note Progress Notes/Assess & Plan Date Seen by Provider: Feb 17, 2017 Time Seen by Provider: 09:31 Progress/Assessment & Plan patient is without complaints she is ambulating, voiding, tolerating by mouth, has good pain control. She denies chest pain, denies shortness of breath, denies headache, denies nausea vomiting. Vital Signs Date Time Temp Pulse Resp B/P (MAP) Pulse Ox O2 Delivery O2 Flow Rate FiO2 02/15/17 05:00 98.4 52 18 140/76 (97) 94 Room Air 02/15/17 01:00 54 18 152/74 (100) 97 Room Air 02/15/17 00:20 98.0 60 18 178/89 (118) 97 Room Air 02/14/17 20:00 98.1 57 18 158/91 (113) 96 Room Air 02/14/17 16:09 97.3 56 18 139/78 (98) 97 Room Air 02/14/17 15:20 97.6 55 16 156/81 (106) 98 Room Air 02/14/17 10:00 97.4 54 140/65 (90) Room Air 02/14/17 09:05 60 16 121/57 (78) Room Air I & O 02/15/17 07:00 Intake Total 4659 ml Output Total 2450 ml Balance 2209 ml vital signs is relatively stable her blood pressures have improved. Her urine output is adequate. The abdomen is benign. Extreme show clubbing cyanosis. There is no Homans sign. There is fairly notable pretibial pitting edema that is not unusual for this patient. Assessment and plan postoperative day number 1 status post repeat and bilateral salpingectomies. Patient is doing well and will have routine convalescence care February 16, 2017 Patient is without complaint. She is ambulating, voiding, tolerating by mouth, has good pain control. Patient denies chest pain, denies shortness of breath, denies nausea vomiting, and denies headache. Vital Signs Date Time Temp Pulse Resp B/P (MAP) Pulse Ox O2 Delivery O2 Flow Rate FiO2 02/16/17 03:10 98.2 68 16 155/71 (99) 97 Room Air 02/15/17 20:30 64 16 149/76 (100) Room Air 02/15/17 20:00 97.8 63 16 173/98 (123) 97 Room Air 02/15/17 18:39 97.3 02/15/17 16:00 97.6 54 16 148/74 (98) 98 Room Air 02/15/17 12:00 97.3 56 18 143/80 (101) 96 Room Air 02/15/17 10:45 97.3 56 18 143/80 (101) 96 Room Air I & O 02/16/17 07:00 Intake Total 3200 ml Output Total 2550 ml Balance 650 ml blood pressures are somewhat labile but acceptable. The abdomen is benign. Incision is clean dry and intact. Extreme show no clubbing cyanosis. There is no Homans sign. There is fairly markedly pretibial pitting edema that is common for this patient February 17, 2017 Patient is without complaint. She is ambulating, voiding, tolerating by mouth, has good pain control. Patient denies chest pain, denies shortness of breath, denies nausea vomiting, and denies headache. Vital Signs Date Time Temp Pulse Resp B/P (MAP) Pulse Ox O2 Delivery O2 Flow Rate FiO2 02/17/17 02:10 98.1 64 16 149/76 (100) 97 Room Air 02/16/17 21:00 98.4 71 16 144/71 (95) 96 Room Air 02/16/17 16:05 97.8 02/16/17 16:04 97.8 02/16/17 16:00 97.8 62 16 156/96 (116) 98 Room Air 02/16/17 12:00 97.8 62 16 156/96 (116) 98 Room Air I & O 02/17/17 07:00 Intake Total 2000 ml Output Total 1200 ml Balance 800 ml vital signs are stable. Patient is afebrile. Her blood pressures are quite stable The abdomen is benign. The fundus is firm. Fundus is nontender. The incision is clean dry and intact. Extremities show no clubbing or cyanosis. There is fairly markedly pretibial pitting edema that is common for this patient. There is no Homans sign. Assessment and plan postoperative day number 3 post repeat delivery. patient's preeclampsia essentially has resolved she had pre-existing hypertension and is on blood pressure medications. If her baby is released today she will be discharged if not we will hold discharge until tomorrow patient will resume her Lovenox daily tomorrow as well Final Diagnosis repeat delivery TRICIA,ARGELIA G MD Feb 17, 2017 9:34 am
[2017-02-17] MEDS ORDERED: DOCU100C37 PO (09:35)
[2017-02-17] MEDS ORDERED: OXYC-465 PO (09:35)
--- NOTE | 2017-02-17 09:40 | Discharge Instructions ---
Discharge Instructions Discharge Medications New, Converted or Re-Newed RX: RX on Chart Patient Instructions Patient Instructions: as directed Return to The Hospital For: as directed Activity & Diet Activity as Tolerated: No Orders-Post D/C & Referrals Follow Up Appt: RTC on Monday, March 20, 2017 at 930 a.m. for incision check. Call to make follow up appt. for patient in 4 weeks. Wound Care: Remove rubia, apply benzoin and steri strips. Activity Per routine post instructions. Please call in RX to patient pharmacy. Diet as tolerated Patient may shower or tub bathe as desired. Continue home meds as prescribed - Resume Lovenox daily on Sunday, February 18, 2017 and follow-up with PCP for long-term anticoagulation instructions ARGELIA CLARKE MD Feb 17, 2017 9:40 am
[2017-02-17] MEDS: DOCUSATE SODIUM 100 MG (COLACE) CAP PO SCH ×2 (10:20→21:43)
[2017-02-17] MEDS: Metoprolol Tartrate 100 MG PO SCH ×2 (10:47→21:45)
[2017-02-17] MEDS: Escitalopram Oxalate 20 MG PO SCH (10:47)
[2017-02-17 16:54] VITALS: BP 174/95
[2017-02-17] MEDS: FERROUS SULF 325 MG (IRON) TAB PO SCH (17:01)
[2017-02-17 22:32] VITALS: BP 152/81
[2017-02-18 04:50] VITALS: BP 139/69
[2017-02-18] MEDS: oxyCODONE/APAP 10/325MG (PERCOCET 10) TABLET PO PRN ×2 (04:50→10:02)
[2017-02-18] MEDS: IBUPROFEN 800 MG (MOTRIN) TAB PO SCH ×2 (04:50→10:01)
[2017-02-18 08:00] VITALS: BP 143/77
[2017-02-18] MEDS: Escitalopram Oxalate 20 MG PO SCH (08:06)
[2017-02-18] MEDS: Metoprolol Tartrate 100 MG PO SCH (08:07)
--- NOTE | 2017-02-18 09:33 | Discharge Summary ---
Discharge Summary term repeat delivery this patient is a 36-year-old white female admitted at 37-2/7 weeks' gestation after being found to have elevated protein in urine consistent with preeclampsia. Her was complicated by morbid obesity, pre-existing hypertension, previous , and A. fib requiring anticoagulation. with the diagnosis of preeclampsia decision made to proceed with delivery. Patient was admitted on 2716 and taken to the operating room for repeat delivery. That delivery was performed without complication. Patient's last dose of Lovenox had been in the morning prior to the day of surgery. Her GBS culture had been negative. On postoperative day number 1 which was February 15, 2017 the patient was without complaint. She ambulated adequately had good pain control and voided well. She denied chest pain, denies shortness of breath, denied nausea vomiting , and denies shortness of breath. She had routine care through the day. On postoperative day number 2/February 16, 2017 patient was unchanged.. This patient's baby was not ready for discharge so the patient management continued. On postoperative day number 3/February 17, 2017 again patient was unchanged and care was continued unchanged.. Now postoperative day number 4/February 08, 2017 patient is requesting discharge home. Her baby is ready for discharge. Patient is ambulating, voiding, tolerating by mouth, has good pain control. She resumed her Lovenox 40 mg subcutaneous injection on this date, that will be continued daily and she' ll follow up with her PCP for ongoing anticoagulation. Patient denies chest pain, denies shortness of breath, denies nausea vomiting, denies headache. She does have some fairly notable pretibial pitting edema but that is not unusual for her and is as expected after her delivery. Principal diagnoses this hospitalization is term repeat delivery secondary diagnoses are morbid obesity, pre-existing hypertension, superimposed preeclampsia, atrial fibrillation, chronic anticoagulation, advanced maternal age,, Operation procedures include spinal analgesia, the delivery, Patient was given appropriate discharge instructions verbally and in writing and a copy those were placed in the chart. Discharge medications are Motrin and Colace and Percocet. Patient is continue her home medications and has resumed her Lovenox as instructed. Clinical Quality Measures DVT/VTE Risk/Contraindication: Risk Factor Score Per Nursin RFS Level Per Nursing on Admit: 3=High ARGELIA CLARKE MD Feb 18, 2017 9:33 am
[2017-02-18] MEDS ORDERED: OMEP10SU2 PO (09:41)
[2017-02-18] MEDS: DOCUSATE SODIUM 100 MG (COLACE) CAP PO SCH (10:01)
== END 2017-02-18 14:45 | disposition home or self-care (01) | DRG 765 ==
LOC: LDRP 08:50
PROVIDERS: ADMIT Obstetrics & Gynecology; ATTEND Obstetrics & Gynecology
PROC: 0UT70ZZ Resection of Bilateral Fallopian Tubes, Open Approach (ICD-10-PCS; 2017-02-14)
PROC: 10D00Z1 Extraction of Products of Conception, Low, Open Approach (ICD-10-PCS; principal; 2017-02-14 12:10)
DX: O11.3 Pre-existing hypertension with pre-eclampsia, third trimester (principal); O34.211 Maternal care for low transverse scar from previous cesarean delivery; O99.213 Obesity complicating pregnancy, third trimester; E66.01 Morbid (severe) obesity due to excess calories; Z68.44 Body mass index [BMI] 60.0-69.9, adult; O99.413 Diseases of the circulatory system complicating pregnancy, third trimester; I48.91 Unspecified atrial fibrillation; O99.343 Other mental disorders complicating pregnancy, third trimester; F41.9 Anxiety disorder, unspecified; Z79.01 Long term (current) use of anticoagulants; Z3A.37 37 weeks gestation of pregnancy; Z37.0 Single live birth
CPT/HCPCS: 36415; 82570; 84156; 85025; 86850; 86900; 86901; 94664